=== PATIENT | male | born 1965 | race Hispanic/Latino ===

== ENCOUNTER 2017-08-24 09:43 | Emergency (ER) | payer BC ==
--- NOTE | 2017-08-24 10:18 | ER ---
Nurse's Notes [facility] Name: Hipolito Wagner Age: 52 yrs Sex: Male : 1965 Arrival Date: 08/24/2017 Time: 09:46 Bed 17 Private MD: Pancho Vora Diagnosis: Hemorrhoids and perianal venous thrombosis Presentation: 08/24 10:02 Presenting complaint: Patient states: "i have hemorrhoids and i have a rash in my groin tw2 area that comes and goes". Transition of care: patient was not received from another setting of care. Onset of symptoms was August 24, 2017. Risk Assessment: Do you want to hurt yourself or someone else? Patient reports no desire to harm self or others. Initial Sepsis Screen: Does the patient meet any 2 criteria? No. Patient's initial sepsis screen is negative. Does the patient have a suspected source of infection? No. Patient's initial sepsis screen is negative. Note "and also my finger hurts on my right hand". Care prior to arrival: None. 10:02 Method Of Arrival: Ambulatory tw2 10:02 Acuity: SANTIAGO 3 tw2 Historical: - Allergies: 10:04 No Known Allergies; tw2 - Home Meds: 10:04 None [Active]; tw2 - PMHx: 10:04 GERD; Hypertension; High Cholesterol; tw2 - Immunization history:: Adult Immunizations up to date. - Social history:: Smoking status: Patient uses tobacco products, smokes one pack cigarettes per day. Screenin:48 Abuse screen: Denies threats or abuse. Denies injuries from another. Nutritional iw screening: No deficits noted. Tuberculosis screening: No symptoms or risk factors identified. Fall Risk None identified. Vital Signs: 10:03 BP 123 / 78; Pulse 65; Resp 17; Temp 97.6(O); Pulse Ox 97% on R/A; Weight 92.08 kg (R); tw2 Height 5 ft. 2 in. (157.48 cm) (R); Pain 7/10; 10:03 Body Mass Index 37.13 (92.08 kg, 157.48 cm) tw2 ED Course: 09:46 Patient arrived in ED. mr 09:47 Pancho Vora MD is Private Physician. mr 10:03 Triage completed. tw2 10:03 Arm band placed on. tw2 10:09 Wenceslao Dowling MD is Attending Physician. gs 10:16 Quan Schroeder MD is Referral Physician. gs 10:31 Anita Smith, RN is Primary Nurse. iw 10:48 Patient has correct armband on for positive identification. Bed in low position. em 10:48 No provider procedures requiring assistance completed. Patient did not have IV access em during this emergency room visit. Administered Medications: No medications were administered Outcome: 10:17 Discharge ordered by MD. gs 10:48 Discharged to home ambulatory. iw 10:48 Condition: good 10:48 Discharge instructions given to patient, Instructed on discharge instructions, follow up and referral plans. Demonstrated understanding of instructions, follow-up care, medications, Prescriptions given X 1. 10:48 Patient left the ED. iw Signatures: Jailene Grimes Damon, Jimmy, NUCLEAR SECURITY OFFICER NUCLEAR SECURITY OFFICER em Anita Smith, RN RN iw Claudia Turcios RN RN tw2 Wenceslao Dowling MD MD
--- NOTE | 2017-08-24 10:18 | EDPHYS ---
Physician Documentation [facility] Name: Hipolito Wagner Age: 52 yrs Sex: Male : 1965 Arrival Date: 08/24/2017 Time: 09:46 Bed 17 Private MD: Pancho Vora ED Physician Wenceslao Dowling HPI: 08/24 10:14 This 52 yrs old Male presents to ER via Ambulatory with complaints of gs Hemorrhoids. 10:14 The patient presents to the emergency department with pain in the rectal area, that is gs mild. Onset: The symptoms/episode began/occurred 1 week(s) ago. Modifying factors: The symptoms are aggravated by bowel movement. Associate signs and symptoms: Pertinent negatives: lower GI bleeding. The patient has experienced similar episodes in the past, a few times. The patient has not recently seen a physician. Historical: - Allergies: 10:04 No Known Allergies; tw2 - Home Meds: 10:04 None [Active]; tw2 - PMHx: 10:04 GERD; Hypertension; High Cholesterol; tw2 - Immunization history:: Adult Immunizations up to date. - Social history:: Smoking status: Patient uses tobacco products, smokes one pack cigarettes per day. ROS: 10:14 Skin: Positive for dermatitis uses triamcinolone asking for refill. gs 10:14 All other systems are negative. Exam: 10:14 Eyes: Pupils equal round and reactive to light, extra-ocular motions intact. Lids and gs lashes normal. Conjunctiva and sclera are non-icteric and not injected. Cornea within normal limits. Periorbital areas with no swelling, redness, or edema. ENT: Nares patent. No nasal discharge, no septal abnormalities noted. Tympanic membranes are normal and external auditory canals are clear. Oropharynx with no redness, swelling, or masses, exudates, or evidence of obstruction, uvula midline. Mucous membranes moist. Neck: Trachea midline, no thyromegaly or masses palpated, and no cervical lymphadenopathy. Supple, full range of motion without nuchal rigidity, or vertebral point tenderness. No Meningismus. Cardiovascular: Regular rate and rhythm with a normal S1 and S2. No gallops, murmurs, or rubs. Normal PMI, no JVD. No pulse deficits. Respiratory: Lungs have equal breath sounds bilaterally, clear to auscultation and percussion. No rales, rhonchi or wheezes noted. No increased work of breathing, no retractions or nasal flaring. Abdomen/GI: Soft, non-tender, with normal bowel sounds. No distension or tympany. No guarding or rebound. No evidence of tenderness throughout. Back: No spinal tenderness. No costovertebral tenderness. Full range of motion. MS/ Extremity: Pulses equal, no cyanosis. Neurovascular intact. Full, normal range of motion. Neuro: Awake and alert, GCS 15, oriented to person, place, time, and situation. Cranial nerves II-XII grossly intact. Motor strength 5/5 in all extremities. Sensory grossly intact. Cerebellar exam normal. Normal gait. 10:14 Constitutional: The patient appears alert, awake. 10:14 Abdomen/GI: Rectal exam: hemorrhoid(s), external, with inflammation, without thrombosis. 10:14 Skin: rash a mild rash is noted, rash can be described as nonspecific, on the right femoral area and left femoral area. Vital Signs: 10:03 BP 123 / 78; Pulse 65; Resp 17; Temp 97.6(O); Pulse Ox 97% on R/A; Weight 92.08 kg (R); tw2 Height 5 ft. 2 in. (157.48 cm) (R); Pain 7/10; 10:03 Body Mass Index 37.13 (92.08 kg, 157.48 cm) tw2 MDM: 10:13 Patient medically screened. gs 10:14 Differential diagnosis: hemorrhoids. Data reviewed: vital signs, nurses notes. Response gs to treatment: There is no appreciated change of the patient's symptoms at this time. Administered Medications: No medications were administered Disposition: 08/24/17 10:17 Discharged to Home. Impression: Hemorrhoids and perianal venous thrombosis. - Condition is Stable. - Discharge Instructions: Hemorrhoids, [id number]. - Prescriptions for Nystatin- Triamcinolone 100,000-0.1 unit/g-% Topical Cream - apply 1 application by TOPICAL route once daily; 30 gram. - Work release form, Medication Reconciliation Form, Thank You Letter, Antibiotic Education, Prescription Opioid Use form. - Follow up: Quan Schroeder MD; When: 2 - 3 days; Reason: Re-evaluation by your physician. Signatures: Anita Smith RN RN iw Claudia Turcios RN RN tw2 Wecneslao Dowling MD MD gs Corrections: (The following items were deleted from the chart) 10:48 10:17 08/24/2017 10:17 Discharged to Home. Impression: Hemorrhoids and perianal venous iw thrombosis. Condition is Stable. Forms are Medication Reconciliation Form, Thank You Letter, Antibiotic Education, Prescription Opioid Use. Follow up: Quan Schroeder; When: 2 - 3 days; Reason: Re-evaluation by your physician. gs
[2017-08-24 10:52] VITALS: BP 123/78; TEMP 97.6; O2SAT 97
== END 2017-08-24 10:48 | disposition home or self-care (01) ==
LOC: ER 09:43
DX: K64.9 Unspecified hemorrhoids (principal); K64.5 Perianal venous thrombosis; I10 Essential (primary) hypertension; F17.210 Nicotine dependence, cigarettes, uncomplicated
CPT/HCPCS: 99282

== ENCOUNTER 2017-08-25 09:09 | Day surgery (SDC) | payer BC ==
[2017-08-25 09:36] LABS: Absolute Lymphocytes (CBC) 1.5 K/uL (0.7-4.9); Absolute Monocytes 0.5 K/uL (0.1-1.3); Absolute Neutrophil 5.1 K/uL (1.8-8.0); Basophils % 0.8 % (0-1.3); Eosinophils % 4.3 % (0-4.4); Hematocrit 48.9 % (39.6-49.0); Lymphocytes % 19.6 % (15.3-44.8); MCH 30.1 pg (27.0-35.0); MCV 87.6 fL (80-100); MPV 8.9 fL (7.6-11.3); Monocytes % 7.1 % (3.3-12.3); RBC Red Blood Cell Count 5.58 M/uL (4.33-5.43)
[2017-08-25 09:54] LABS: Bicarbonate 26 mEq/L (21-31); Glucose Level 111 mg/dL (65-120); Potassium 3.9 mEq/L (3.6-5.0); Sodium Level 135 mEq/L (135-145)
[2017-08-25 09:55] LABS: BUN Blood Urea Nitrogen 13 mg/dL (6-20)
[2017-08-25] MEDS ORDERED: Ringers Lactate 1,000 ML IV ONE (10:30)
[2017-08-25] MEDS ORDERED: BUPIVACAINE 0.5% PF 10 ML VIAL ONE (10:30)
[2017-08-25] MEDS ORDERED: CEFAZOLIN/SWI 1gm 1 GM/10 ML SYR ONE (10:30)
--- NOTE | 2017-08-25 10:47 | EKG ---
Test Date: 2017-08-25 Test Time: 09:14:01 Traffic Law Attorney: CHAR MEASUREMENT RESULTS: Intervals: Rate: 57 DE: 144 QRSD: 106 QT: 428 QTc: 416 Stanley: P: 89 DE: 144 QRS: 91 T: 99 INTERPRETIVE STATEMENTS: Sinus bradycardia Rightward axis Borderline ECG Compared to ECG 11/07/2016 08:26:09 Right-axis deviation now present Sinus rhythm no longer present Electronically Signed On 08-25-17 10:46:06 CDT by John Gomez
--- NOTE | 2017-08-25 10:55 | RAD REPORT ---
EXAM DESCRIPTION: RAD - Chest Pa And Lat (2 Views) - 08/25/2017 9:36 am CLINICAL HISTORY: Smoker, pelvic pain COMPARISON: 02/08/2017, 11/07/2016 FINDINGS: The lungs are mildly emphysematous but clear. The heart is normal in size. No displaced fr actures. IMPRESSION: Mild COPD.
[2017-08-25] MEDS ORDERED: MIDAZOLAM HCL 2 MG/2 ML INJ ONE (11:11)
[2017-08-25] MEDS ORDERED: PROPOFOL 200 MG/20 ML VIAL IV ONE (11:12)
[2017-08-25] MEDS ORDERED: FENTANYL CITR 100 MCG/2 ML ONE ×2 (11:12→11:37)
--- NOTE | 2017-08-25 11:46 | P.BOP ---
Preoperative diagnosis: tender external thrombosed hemorrhoid Postoperative diagnosis: same Primary procedure: 1. EUA, 2. Anoscopy, 3. rigid proctoscopy Secondary procedure: 4. External hemorrhoidectomy Estimated blood loss: <5cc Specimen: external thrombosed hemorrhoid Findings: left posterolateral external thrombosed hemorrhoid Anesthesia: General Complications: None Transferred to: Recovery Room Condition: Good
[2017-08-25] MEDS: MEPERIDINE HCL 25 MG/0.5 ML ONE ×2 (12:35→12:42)
[2017-08-25 13:39] VITALS: BP 120/75; O2SAT 98
[2017-08-25] MEDS ORDERED: CODEINE 30MG/APAP 300MG TAB ONE (13:58)
[2017-08-25 17:06] VITALS: TEMP 97.3
--- NOTE | 2017-08-25 22:27 | OP ---
Date of Procedure: 08/25/2017 Surgeon: Quan Schroeder MD Piano Stringer: None. Preoperative Diagnosis: Tender external thrombosed hemorrhoid. Postoperative Diagnosis: Tender external thrombosed hemorrhoid. Procedures: EUA, anoscopy, rigid proctoscopy, and external hemorrhoidectomy. Specimen: External thrombosed hemorrhoid. Findings: Left posterolateral external thrombosed hemorrhoid prolapse. Anesthesia: General, plus local. Indications: This is a case of a 52-year-old patient, comes with severe perianal pain, found to have a thrombosed hemorrhoid with necrotic tissue on the skin. The patient was fully complained the EUA, anoscopy, rigid proctoscopy with hemorrhoidectomy with benefits, alternatives, and risks including, but not limited to infection, bleeding, damage to adjacent structures, anesthesia complication, recur rence, anal stricture, anal incontinence, [place], and even . He also understands this may not relie ve any symptoms, he might need more than one surgical intervention. He understands the importance of losing weight and avoiding heavy lifting and constipation. He signed a consent. Description Of Procedure: The patient was brought to the operating room and placed in the supine pos ition. Anesthesia was done without complication. A time-out was called. The patient was placed in Trendelenburg position with proper protection. Rigid proctoscopy was done all the way to about 12 cm , limited by the amount of stool present in that area, with no masses seen. This was done under dire ct visualization. After that, the area was prepped and draped in usual sterile fashion. Anoscope wa s placed with a window on the side. Identified multiple hemorrhoids over the area. There was 1 that was thrombosed and hard, was partially necrotic and this needed to be removed. So, we created a win [place] by opening the anoderm, identifying a thrombosed hemorrhoid. that from the center. Th en after that, transected the hemorrhoidal plexus with Harmonic scalpel. The area was irrigated. He mostasis was obtained. Local anesthesia was applied and then after that, the anoderm was approximate d with 3-0 chromic. The patient tolerated the procedure well. No bleeding. Anoscope was removed. The patient was sent to recovery in stable condition. NIKOLAY/AYESHA Voice ID: [id number] Report ID: [id number]
--- NOTE | 2017-08-25 22:30 | DS ---
Date of Discharge: 08/25/2017 Diagnosis: Tender external thrombosed hemorrhoid. Procedures: EUA, anoscopy, proctoscopy, and external hemorrhoidectomy. Disposition: Home. Activity: As tolerated. No heavy lifting. Followup: Follow up in my office in 1 week. Call for appointment at [phone]. Instructions: Sitz baths 3 times a day and after every bowel movement. Medications: Include Cipro 500 p.o. q.12 and Tylenol No. 3 q.4 hours p.r.n. pain. NIKOLAY/AYESHA Voice ID: [id number] Report ID: [id number]
== END 2017-08-25 16:40 | disposition home or self-care (01) ==
LOC: OR 09:09
PROVIDERS: ATTEND Surgery
PROC: 0DJD8ZZ Inspection of Lower Intestinal Tract, Via Natural or Artificial Opening Endoscopic (ICD-10-PCS; 2017-08-25)
PROC: 06BY0ZC Excision of Hemorrhoidal Plexus, Open Approach (ICD-10-PCS; principal; 2017-08-25 12:00)
DX: K64.5 Perianal venous thrombosis (principal); F17.210 Nicotine dependence, cigarettes, uncomplicated; Z82.49 Family history of ischemic heart disease and other diseases of the circulatory system; Z83.3 Family history of diabetes mellitus; Z80.0 Family history of malignant neoplasm of digestive organs
CPT/HCPCS: 36415; 71046; 80048; 85025; 88304; 93005; J0690; J2175; J2250; J3010

== ENCOUNTER 2018-01-10 19:23 | Observation (INO) | payer BC ==
[2018-01-10 22:10] LABS: Barbiturates NEGATIVE (NEGATIVE); Benzodiazepines NEGATIVE (NEGATIVE); Cocaine NEGATIVE (NEGATIVE); METHAMPHETAM NEGATIVE (NEGATIVE); Methadone NEGATIVE (NEGATIVE); Opiates NEGATIVE (NEGATIVE); Phencyclidine NEGATIVE (NEGATIVE); THC Cannibis NEGATIVE (NEGATIVE)
[2018-01-10 22:11] LABS: Absolute Lymphocytes (CBC) 1.9 K/uL (0.7-4.9); Absolute Monocytes 0.8 K/uL (0.1-1.3); Absolute Neutrophil 8.8 K/uL (1.8-8.0); Basophils % 0.8 % (0-1.3); Eosinophils % 2.8 % (0-4.4); Hematocrit 45.2 % (39.6-49.0); Lymphocytes % 15.7 % (15.3-44.8); MCH 31.4 pg (27.0-35.0); MCV 88.1 fL (80-100); MPV 9.5 fL (7.6-11.3); Monocytes % 6.6 % (3.3-12.3); Protime INR 1.1; RBC Red Blood Cell Count 5.13 M/uL (4.33-5.43)
[2018-01-10] MEDS ORDERED: FENTANYL CITR 100 MCG/2 ML ONE (22:11)
[2018-01-10] MEDS ORDERED: ONDANSETRON 4 MG/2 ML VIAL ONE (22:12)
[2018-01-10] MEDS ORDERED: FAMOTIDINE 20 MG/2 ML VIAL IV ONE (22:12)
[2018-01-10] MEDS ORDERED: NA CHLORIDE 0.9% 1,000 ML ONE (22:13)
[2018-01-10 22:24] LABS: ALT/SGPT 31 U/L (12-78); AST/SGOT 24 U/L (15-37); Albumin 4.6 g/dL (3.4-5.0); Alkaline Phosphatase 67 U/L (45-117); BUN Blood Urea Nitrogen 23 mg/dL (7-18); Bicarbonate 27 mmol/L (21-32); Bilirubin Direct 0.1 mg/dL (0-0.2); Bilirubin Total 0.3 mg/dL (0.2-1.0); Glucose Level 98 mg/dL (74-106); Lipase 155 U/L (73-393); Magnesium 2.5 mg/dL (1.8-2.4); NT PRO-BNP 85 pg/mL (<125); Potassium 3.9 mmol/L (3.5-5.1); Protein, Total 8.2 g/dL (6.4-8.2); Sodium Level 136 mmol/L (136-145); Troponin (Emerg Dept Use Only) < 0.02 ng/mL (0.0-0.045)
[2018-01-10 23:33] LABS: Urine Specific Gravity 1.025 (1.005-1.030)
[2018-01-10 23:34] LABS: Urine Blood NEGATIVE (NEG); Urine Glucose NEGATIVE (NEG); Urine Protein 1+ (NEG); Urine pH 5.5 (5.0-7.0)
--- NOTE | 2018-01-11 00:56 | ER ---
Nurse's Notes [facility] Name: Hipolito Wagner Age: 52 yrs Sex: Male : 1965 Arrival Date: 01/10/2018 Time: 19:23 Bed 28 Private MD: Pancho Vora Diagnosis: Abdominal tenderness;Chest pain, unspecified;Unspecified kidney failure Presentation: 01/10 19:53 Presenting complaint: Patient states: he started on fluconazole for a rash on his neck bb 4 days ago and now is having pain across his back and his chest of 01/12 yesterday he had sharp abdominal pain which lasted several hours but when he woke up today it was gone. Transition of care: patient was not received from another setting of care. Onset of symptoms was January 09, 2018. Risk Assessment: Do you want to hurt yourself or someone else? Patient reports no desire to harm self or others. Initial Sepsis Screen: Does the patient meet any 2 criteria? No. Patient's initial sepsis screen is negative. Does the patient have a suspected source of infection? No. Patient's initial sepsis screen is negative. Care prior to arrival: None. 19:53 Method Of Arrival: Ambulatory bb 19:53 Acuity: SANTIAGO 3 bb Historical: - Allergies: 19:57 No Known Allergies; bb - Home Meds: 19:57 fluconazole 150 mg Oral tab 1 tab daily [Active]; bb - PMHx: 19:57 GERD; High Cholesterol; Hypertension; bb - PSHx: 19:57 Cholecystectomy; hemorrhoidectomy; bb - Immunization history:: Adult Immunizations up to date. - Social history:: Smoking status: Patient uses tobacco products, smokes one-half pack cigarettes per day, Patient/guardian denies using alcohol, street drugs. - Ebola Screening: : No symptoms or risks identified at this time. - Family history:: not pertinent. Screenin:53 Abuse screen: Denies threats or abuse. Denies injuries from another. Nutritional rv screening: No deficits noted. Tuberculosis screening: No symptoms or risk factors identified. Fall Risk None identified. Assessment: 20:53 General: Appears in no apparent distress. comfortable, Behavior is calm, cooperative. rv Pain: Complains of pain in abdomen. Neuro: Level of Consciousness is awake, alert, obeys commands, Oriented to person, place, time, situation. Cardiovascular: Capillary refill < 3 seconds. Respiratory: Airway is patent. GI: No signs and/or symptoms were reported involving the gastrointestinal system. : No signs and/or symptoms were reported regarding the genitourinary system. EENT: No signs and/or symptoms were reported regarding the EENT system. Derm: Skin is intact. 23:24 Reassessment: Patient appears in no apparent distress at this time. Patient and/or rv family updated on plan of care and expected duration. Pain level reassessed. Patient is alert, oriented x 3, equal unlabored respirations, skin warm/dry/pink. 01/11 02:34 Reassessment: Patient appears in no apparent distress at this time. Patient and/or rv family updated on plan of care and expected duration. Pain level reassessed. Patient is alert, oriented x 3, equal unlabored respirations, skin warm/dry/pink. Vital Signs: 01/10 19:57 BP 121 / 90; Pulse 82; Resp 18 S; Temp 98.3(O); Pulse Ox 98% on R/A; Weight 92.99 kg bb (R); Height 5 ft. 2 in. (157.48 cm) (R); Pain 10/10; 21:04 BP 98 / 82; Pulse 68; Resp 17; Pulse Ox 98% on R/A; rv 23:23 BP 128 / 82; Pulse 62; Resp 13; Pulse Ox 97% on R/A; rv 01/11 02:29 BP 120 / 75; Pulse 56; Resp 13; Pulse Ox 99% on R/A; rv 03:03 BP 118 / 78; Pulse 55; Pulse Ox 99% on R/A; rv 01/10 19:57 Body Mass Index 37.49 (92.99 kg, 157.48 cm) ED Course: 01/10 19:23 Patient arrived in ED. ds1 19:24 Pancho Vora MD is Private Physician. ds1 19:57 Triage completed. bb 19:57 Arm band placed on Patient placed in an exam room, on a stretcher, on pulse oximetry. bb 20:53 Patient has correct armband on for positive identification. Bed in low position. Call rv light in reach. Side rails up X 1. Pulse ox on. NIBP on. 21:14 Mickey Davila MD is Attending Physician. jordyn 21:55 Radiology exam delayed due to lab results not completed at this time. (BUN/Creatinine). [email or web address] 22:01 XRAY Chest (1 view) In Process Unspecified. EDMS 22:20 Inserted saline lock: 20 gauge in left antecubital area, using aseptic technique. Blood rv collected. 22:20 Initial lab(s) drawn, by me, sent to lab. Urine collected: clean catch specimen, clear, rv EKG done, by ED staff, reviewed by Mickey Davila MD. 22:59 Note: Per Dr. Davila to do CT without contrast due to elevated creatinine. nj 23:[address] nj 23:11 Chest Abd Pelvis Wo Con In Process Unspecified. EDMS 23:12 CT completed. Patient tolerated procedure well. Patient moved back from CT. kw1 01/11 00:54 Kylah Be MD is Hospitalizing Provider. [facility] 01:00 Awaiting bed assignment. rv 03:01 No provider procedures requiring assistance completed. Patient admitted, IV remains in rv place. intact. Administered Medications: 01/10 22:32 Drug: Zofran 4 mg Route: IVP; Site: left forearm; rv 23:22 Follow up: Response: No adverse reaction rv 22:32 Drug: Pepcid 20 mg Route: IVP; Site: left forearm; rv 23:22 Follow up: Response: No adverse reaction rv 22:33 Drug: NS 0.9% 1000 ml Route: IV; Rate: 1 bolus; Site: left forearm; rv 23:23 Follow up: IV Status: Completed infusion rv 22:33 Drug: fentaNYL (PF) 50 mcg Route: IVP; Site: left forearm; rv 23:22 Follow up: Response: No adverse reaction rv Outcome: 01/11 00:55 Decision to Hospitalize by Provider. jordyn 03:02 Admitted to Tele accompanied by tech, via wheelchair, room 411, with chart, Report rv called to BRITTANY 03:02 Condition: good 03:02 Instructed on the need for admit. 03:08 Patient left the ED. rv Signatures: Dispatcher [employer] Mickey Blackwell MD MD cha Sanford, Demi ds1 Tonya Grimes, RIDDHI RN Matt Mckinley Kimberly kw1 Chava Tran RN RN rv Jessica Stratton [email or web address] Corrections: (The following items were deleted from the chart) 02:28 02:25 Inserted saline lock: rv rv
--- NOTE | 2018-01-11 00:57 | EDPHYS ---
Physician Documentation [facility] Name: Hipolito Wagner Age: 52 yrs Sex: Male : 1965 Arrival Date: 01/10/2018 Time: 19:23 Bed 28 Private MD: Pancho Vora ED Physician Mcikey Davila HPI: 01/10 21:49 This 52 yrs old Male presents to ER via Ambulatory with complaints of Cramping jordyn All Over. 21:49 The patient presents with abdominal pain in the epigastric area, in the upper abdomen, jordyn in the right upper quadrant. Onset: The symptoms/episode began/occurred 4 day(s) ago. The patient complains of pain in the right mid back and right low back. The pain radiates to the right mid back and right low back. Onset: The symptoms/episode began/occurred 4 day(s) ago. Modifying factors: The symptoms are alleviated by nothing. Associated signs and symptoms: The patient has no apparent associated signs or symptoms. The symptoms do not radiate. Historical: - Allergies: 19:57 No Known Allergies; bb - Home Meds: 19:57 fluconazole 150 mg Oral tab 1 tab daily [Active]; bb - PMHx: 19:57 GERD; High Cholesterol; Hypertension; bb - PSHx: 19:57 Cholecystectomy; hemorrhoidectomy; bb - Immunization history:: Adult Immunizations up to date. - Social history:: Smoking status: Patient uses tobacco products, smokes one-half pack cigarettes per day, Patient/guardian denies using alcohol, street drugs. - Ebola Screening: : No symptoms or risks identified at this time. - Family history:: not pertinent. ROS: 21:49 Constitutional: Negative for fever, chills, and weight loss, Eyes: Negative for injury, jordyn pain, redness, and discharge, ENT: Negative for injury, pain, and discharge, Neck: Negative for injury, pain, and swelling, Cardiovascular: Negative for chest pain, palpitations, and edema, Respiratory: Negative for shortness of breath, cough, wheezing, and pleuritic chest pain, : Negative for injury, bleeding, discharge, and swelling, MS/Extremity: Negative for injury and deformity, Skin: Negative for injury, rash, and discoloration, Neuro: Negative for headache, weakness, numbness, tingling, and seizure, Psych: Negative for depression, anxiety, suicide ideation, homicidal ideation, and hallucinations, Allergy/Immunology: Negative for hives, rash, and allergies, Endocrine: Negative for neck swelling, polydipsia, polyuria, polyphagia, and marked weight changes, Hematologic/Lymphatic: Negative for swollen nodes, abnormal bleeding, and unusual bruising. 21:49 Abdomen/GI: Positive for abdominal pain, of the posterior aspect of right lateral abdomen, right upper quadrant and right lower quadrant. Exam: 21:49 Constitutional: This is a well developed, well nourished patient who is awake, alert, jordyn and in no acute distress. Head/Face: Normocephalic, atraumatic. Eyes: Pupils equal round and reactive to light, extra-ocular motions intact. Lids and lashes normal. Conjunctiva and sclera are non-icteric and not injected. Cornea within normal limits. Periorbital areas with no swelling, redness, or edema. ENT: Nares patent. No nasal discharge, no septal abnormalities noted. Tympanic membranes are normal and external auditory canals are clear. Oropharynx with no redness, swelling, or masses, exudates, or evidence of obstruction, uvula midline. Mucous membranes moist. Neck: Trachea midline, no thyromegaly or masses palpated, and no cervical lymphadenopathy. Supple, full range of motion without nuchal rigidity, or vertebral point tenderness. No Meningismus. Chest/axilla: Normal chest wall appearance and motion. Nontender with no deformity. No lesions are appreciated. Cardiovascular: Regular rate and rhythm with a normal S1 and S2. No gallops, murmurs, or rubs. Normal PMI, no JVD. No pulse deficits. Respiratory: Lungs have equal breath sounds bilaterally, clear to auscultation and percussion. No rales, rhonchi or wheezes noted. No increased work of breathing, no retractions or nasal flaring. Back: No spinal tenderness. No costovertebral tenderness. Full range of motion. Male : Normal genitalia with no discharge or lesions. Skin: Warm, dry with normal turgor. Normal color with no rashes, no lesions, and no evidence of cellulitis. MS/ Extremity: Pulses equal, no cyanosis. Neurovascular intact. Full, normal range of motion. Neuro: Awake and alert, GCS 15, oriented to person, place, time, and situation. Cranial nerves II-XII grossly intact. Motor strength 5/5 in all extremities. Sensory grossly intact. Cerebellar exam normal. Normal gait. Psych: Awake, alert, with orientation to person, place and time. Behavior, mood, and affect are within normal limits. 21:49 Abdomen/GI: Inspection: distension, Bowel sounds: normal, Palpation: moderate abdominal tenderness, in the posterior aspect of right lateral abdomen, right upper quadrant and right lower quadrant. Vital Signs: 19:57 BP 121 / 90; Pulse 82; Resp 18 S; Temp 98.3(O); Pulse Ox 98% on R/A; Weight 92.99 kg bb (R); Height 5 ft. 2 in. (157.48 cm) (R); Pain 01/12; 21:04 BP 98 / 82; Pulse 68; Resp 17; Pulse Ox 98% on R/A; rv 23:23 BP 128 / 82; Pulse 62; Resp 13; Pulse Ox 97% on R/A; rv 01/11 02:29 BP 120 / 75; Pulse 56; Resp 13; Pulse Ox 99% on R/A; rv 03:03 BP 118 / 78; Pulse 55; Pulse Ox 99% on R/A; rv 01/10 19:57 Body Mass Index 37.49 (92.99 kg, 157.48 cm) bb MDM: 01/10 21:14 [facility] 21:49 Data reviewed: vital signs, nurses notes, lab test result(s), EKG, radiologic studies, [facility] scan, plain films. 01/10 21:30 Order name: Basic Metabolic Panel [facility] 01/10 21:30 Order name: CBC with Diff; Complete Time: 23:07 [facility] 01/10 21:30 Order name: LFT's [facility] 01/10 21:30 Order name: Magnesium [facility] 01/10 21:30 Order name: NT PRO-BNP [facility] 01/10 21:30 Order name: PT-INR; Complete Time: 23:07 [facility] 01/10 21:30 Order name: Troponin (emerg Dept Use Only) [facility] 01/10 21:30 Order name: Lipase [facility] 01/10 21:30 Order name: UDS; Complete Time: 23:07 [facility] 01/10 21:30 Order name: Urine Culture [facility] 01/10 21:30 Order name: ETOH Level; Complete Time: 23:07 [facility] 01/10 21:31 Order name: Basic Metabolic Panel EDIA 01/10 21:31 Order name: Liver (Hepatic) Function EDMS 01/10 22:59 Order name: Urine Dipstick--Ancillary (enter results); Complete Time: 00:53 id 01/10 21:30 Order name: XRAY Chest (1 view) [facility] 01/10 21:30 Order name: EKG; Complete Time: 21:31 [facility] 01/10 21:30 Order name: Cardiac monitoring; Complete Time: 22:33 [facility] 01/10 21:30 Order name: EKG - Nurse/Tech; Complete Time: 23:23 [facility] 01/10 21:30 Order name: IV Saline Lock; Complete Time: 22:33 [facility] 01/10 21:30 Order name: Labs collected and sent; Complete Time: 22:33 [facility] 01/10 21:30 Order name: O2 Per Protocol; Complete Time: 22:33 [facility] 01/10 22:55 Order name: Chest Abd Pelvis Wo Con EDIA 01/11 01:00 Order name: CONS Physician Consult EDIA 01/11 01:05 Order name: Uric Acid EDIA 01/10 21:30 Order name: O2 Sat Monitoring; Complete Time: 22:33 [facility] 01/10 21:30 Order name: Urine Dipstick-Ancillary (obtain specimen); Complete Time: 23:23 [facility] Administered Medications: 22:32 Drug: Zofran 4 mg Route: IVP; Site: left forearm; rv 23:22 Follow up: Response: No adverse reaction rv 22:32 Drug: Pepcid 20 mg Route: IVP; Site: left forearm; rv 23:22 Follow up: Response: No adverse reaction rv 22:33 Drug: NS 0.9% 1000 ml Route: IV; Rate: 1 bolus; Site: left forearm; rv 23:23 Follow up: IV Status: Completed infusion rv 22:33 Drug: fentaNYL (PF) 50 mcg Route: IVP; Site: left forearm; rv 23:22 Follow up: Response: No adverse reaction rv Disposition: 01/11/18 00:55 Hospitalization ordered by Kylah Be for Observation. Preliminary diagnosis are Abdominal tenderness, Chest pain, unspecified, Unspecified kidney failure. - Bed requested for Telemetry/MedSurg (observation). - Status is Observation. rv - Condition is Fair. - Problem is new. - Symptoms have improved. UTI on Admission? No Signatures: Dispatcher [employer] EDIA Glory Haji, RIDDHI RN Mickey Ramirez MD MD cha Ballard, Brenda, RN RN Chava Armando, RIDDHI RN rv Corrections: (The following items were deleted from the chart) 22:55 21:31 Angio Aorta For Dissection+CT.RAD.BRZ ordered. EDIA EDIA 01/11 01:05 01:01 URIC ACID+C.LAB.BRZ ordered. [facility] EDIA 02:44 00:55 Hospitalization Ordered by Kylah Be MD for Observation. Preliminary kl diagnosis is Abdominal tenderness; Chest pain, unspecified; Unspecified kidney failure. Bed requested for Telemetry/MedSurg (observation). Status is Observation. Condition is Fair. Problem is new. Symptoms have improved. UTI on Admission? No. [facility] 03:08 02:44 01/11/2018 00:55 Hospitalization Ordered by Kylah Be MD for Observation. rv Preliminary diagnosis is Abdominal tenderness; Chest pain, unspecified; Unspecified kidney failure. Bed requested for Telemetry/MedSurg (observation). Status is Observation. Condition is Fair. Problem is new. Symptoms have improved. UTI on Admission? No. kl
[2018-01-11 01:54] LABS: Uric Acid 7.8 mg/dL (3.5-7.2)
[2018-01-11] MEDS ORDERED: ALPRAZOLAM 0.25 MG TABLET PO PRN (02:50)
[2018-01-11] MEDS ORDERED: MORPHINE 4 MG/ML SYR IV PRN (02:50)
[2018-01-11 05:17] VITALS: BMI 34.5
[2018-01-11 06:34] LABS: HDL Cholesterol 32 mg/dL (40-60); LDL Cholesterol, Calculated 73 (<130); Troponin I < 0.02 ng/mL (0.0-0.045)
--- NOTE | 2018-01-11 07:06 | RAD REPORT ---
EXAM DESCRIPTION: CT - Chest Abd Pelvis Wo Con - 01/11/2018 6:26 am CLINICAL HISTORY: Chest pain, back pain, abdominal pain COMPARISON: None. TECHNIQUE: Axial 5 millimeter thick images of the chest abdomen and pelvis were obtained. No oral co ntrast administered. All CT scans are performed using dose optimization technique as appropriate and may include automated exposure control or mA/KV adjustment according to patient size. FINDINGS: The lungs are clear of mass and infiltrate. No pneumothorax or pleural effusion. No ches t wall mass or abnormal axillary lymphadenopathy seen. Mediastinal and hilar regions show no mass or lymphadenopathy. No significant cardiac finding. The liver, spleen and pancreas show no significant findings. Cholecystectomy clips are present. No b iliary tree dilatation. No hydronephrosis and no obstructing or nonobstructing calculi. No mass suspected. Isodense masses an d pyelonephritis are not excluded on a noncontrast study. No adrenal abnormalities. No urinary bladd er abnormalities. No dilated bowel loops or focal ball bowel wall thickening. No free air, free fluid or inflammatory stranding. No mass or bulky lymphadenopathy. Small bilateral fat filled inguinal hernias are present . Patient has a 3 centimeter fat only umbilical hernia. No significant bone or vascular finding. IMPRESSION: CT chest imaging shows no mass, lymphadenopathy or other significant finding. CT abdomen and pelvis imaging shows no significant or suspicious finding.Nonacute findings detailed i n the body of the report.
--- NOTE | 2018-01-11 07:10 | RAD REPORT ---
EXAM DESCRIPTION: RAD - Chest Single View - 01/10/2018 10:01 pm CLINICAL HISTORY: Chest pain, back pain COMPARISON: August 2017 TECHNIQUE: AP portable chest image was obtained 2155 hours . FINDINGS: Lungs are clear. Heart and vasculature are normal. No measurable pleural effusion and no p neumothorax. No acute bony abnormality seen. No acute aortic findings suspected. IMPRESSION: No acute cardiopulmonary process. No significant change from comparison.
--- NOTE | 2018-01-11 07:34 | EKG ---
Test Date: 2018-01-10 Test Time: 22:46:13 Chief Orthoptist: MEASUREMENT RESULTS: Intervals: Rate: 60 MA: 170 QRSD: 104 QT: 440 QTc: 440 [place]: P: 71 MA: 170 QRS: 86 T: 75 INTERPRETIVE STATEMENTS: Normal sinus rhythm Normal ECG Compared to ECG 08/25/2017 09:14:01 Sinus bradycardia no longer present Right-axis deviation no longer present Electronically Signed On 01-11-18 07:33:18 CDT by John Gomez
[2018-01-11] MEDS ORDERED: DEXAMETHASONE 4 MG/ML VIAL IV ONE (07:41)
--- NOTE | 2018-01-11 07:51 | P.HP ---
Certification for Inpatient Patient admitted to: Observation With expected LOS: <2 Midnights Patient will require the following post-hospital care: None Practitioner: I am a practitioner with admitting privileges, knowledge of patient current condition, hospital course, and medical plan of care. Services: Services provided to patient in accordance with Admission requirements found in Title 42 Section 412.3 of the Code of Federal Regulations Patient History Date of Service: 01/11/18 Reason for admission: Abdominal pain; chest pain; acute kidney injury History of Present Illness: Patient is a 52-year-old gentleman who came into the hospital with chest discomfort. Patient also had discomfort in the upper back. Patient had been to see his primary care provider and was prescribed an antifungal. Patient had been using this for the last few days, but then developed significant pain in her upper back. Patient's pain tends to be debilitating. Patient is not able to do much with the pain starts. Decision was made to admit the patient to the hospital for further evaluation. Allergies No Known Allergies Allergy (Verified 08/25/17 10:24) Home Medications: Clotrim/Betameth Cream [Lotrisone Cream*] 1 katina TOP BID 01/11/18 Fluconazole 100 mg PO DAILY 01/11/18 - Past Medical/Surgical History Has patient received pneumonia vaccine in the past: No Diabetic: No -: GERD -: HTN -: High Cholesterol -: Cholecystectomy -: Hemorrhoidectomy - Family History Brother Medical History: Cancer Notes: Brain cancer mom Medical History: Diabetes, Cancer dad Medical History: Diabetes, Cancer Notes: Pancreatic cancer - Social History Smoking Status: Current every day smoker Alcohol use: No CD- Drugs: No Caffeine use: Yes Place of Residence: Home Review of Systems 10-point ROS is otherwise unremarkable General: Fever Respiratory: Cough, Dry, Shortness of Breath, Hemoptysis Cardiovascular: Chest Pain, Palpitations Physical Examination - Vital Signs Temperature: 97.2 F Blood Pressure: 110/61 Pulse: 50 Respirations: 16 Pulse Ox (%): 97 - Physical Exam General: Alert, In no apparent distress, Oriented x3 HEENT: Atraumatic, Normocephalic, PERRLA, Mucous membr. moist/pink Neck: Supple, 2+ carotid pulse no bruit, JVD not distended, No Thyromegaly, No LAD Respiratory: Clear to auscultation bilaterally, Normal air movement Cardiovascular: Regular rate/rhythm, Normal S1 S2 Gastrointestinal: Normal bowel sounds, Hypoactive, Soft and benign, Non- distended Musculoskeletal: No clubbing, No swelling, No contractures, No warmth Integumentary: No rashes, No breakdown, No significant lesion, No tenderness/ swelling Neurological: Normal gait, Normal speech, Normal strength at 5/5 x4 extr, Normal tone - Studies Laboratory Data (last 24 hrs) 01/10/18 21:50: PT 13.0 H, INR 1.10 01/10/18 21:50: WBC 11.9 H, Hgb 16.1, Hct 45.2, Plt Count 164 01/10/18 21:50: Sodium 136, Potassium 3.9, BUN 23 H, Creatinine 2.00 H, Glucose 98, Uric Acid 7.8 H, Magnesium 2.5 H, Total Bilirubin 0.3, AST 24, ALT 31, Alkaline Phosphatase 67, Lipase 155 Assessment & Plan - Problems (Diagnosis) (1) Negative middle ear pressure Current Visit: Yes Status: Acute (2) Cutaneous candidiasis Current Visit: Yes Status: Acute (3) Antifungal drug adverse reaction Current Visit: Yes Status: Acute (4) Upper back pain Current Visit: Yes Status: Acute (5) Acute kidney injury superimposed on CKD Current Visit: Yes Status: Acute - Plan Plan: 1. Serial troponins and EKG 2. Anti-inflammatory for back pain 3. Echocardiogram 4. Anti-platelet therapy, 5. Discontinue antifungal 6. Gentle hydration and check a renal ultrasound/urine analysis 7. GI and DVT prophylaxis Discharge Plan: Home Plan to discharge in: 24 Hours - Advance Directives Does patient have a Living Will: No Does patient have a Durable POA for Healthcare: No - Code Status/Comfort Care Code Status Assessed: Yes Code Status: Full Code Critical Care: No Time Spent Managing PTS Care (In Minutes): 50
[2018-01-11] MEDS ORDERED: INFLUENZA VACCINE (for 3y+) 0.5 ML DOSE IMVAC ONE (08:00)
[2018-01-11] MEDS: METOPROLOL TAR 50 MG TAB PO SCH ×2 (09:00→20:38)
[2018-01-11] MEDS ORDERED: NA CHLORIDE 0.9% 1,000 ML IV ONE (09:45)
--- NOTE | 2018-01-11 10:31 | RAD REPORT ---
EXAM DESCRIPTION: US - Renal Ultrasound-Complete - 01/11/2018 9:08 am CLINICAL HISTORY: . Acute renal insufficiency/chronic renal insufficiency COMPARISON: None. FINDINGS: The right kidney measures 11 cm with a mildly increased echotexture. The left kidney measures 11 cm with a mildly increased echotexture. Hydronephrosis is not seen. No gross abnormality of the bladder is noted IMPRESSION: Mildly increased renal echotexture consistent with parenchymal disease
[2018-01-11] MEDS: ENOXAPARIN 40 MG/0.4 ML SQ SCH (10:40)
[2018-01-11] MEDS: ASPIRIN EC 81 MG TAB PO SCH (10:41)
[2018-01-11 11:37] LABS: Absolute Lymphocytes (CBC) 1.5 K/uL (0.7-4.9); Absolute Monocytes 0.6 K/uL (0.1-1.3); Absolute Neutrophil 3.7 K/uL (1.8-8.0); Eosinophils % 7.1 % (0-4.4); Hematocrit 41.9 % (39.6-49.0); MCH 31.2 pg (27.0-35.0); MCV 89.8 fL (80-100); MPV 9.1 fL (7.6-11.3); Monocytes % 9.7 % (3.3-12.3); RBC Red Blood Cell Count 4.67 M/uL (4.33-5.43)
[2018-01-11 11:51] LABS: Magnesium 2.2 mg/dL (1.8-2.4); Phosphorus 2.4 mg/dL (2.5-4.9)
[2018-01-11] MEDS: NA CHLORIDE 0.9% 1,000 ML IV SCH ×3 (11:51→23:42)
--- NOTE | 2018-01-11 12:11 | EKG ---
Test Date: 2018-01-11 Test Time: 08:29:08 Erp Specialist: YANIRA MEASUREMENT RESULTS: Intervals: Rate: 48 TN: 182 QRSD: 112 QT: 448 QTc: 400 [place]: P: 78 TN: 182 QRS: 84 T: 90 INTERPRETIVE STATEMENTS: Marked sinus bradycardia Abnormal ECG Compared to ECG 01/10/2018 22:46:13 Sinus rhythm no longer present Electronically Signed On 01-11-18 12:10:45 CDT by John Gomez
--- NOTE | 2018-01-11 12:45 | ECHO ---
HEIGHT: 5 ft 2 in WEIGHT: 188 lb 12.8 oz DATE OF STUDY: 01/11/[address]: 2-DIMENSIONAL: YES M.MODE: YES DOPPLER: YES COLOR FLOW: YES TDS: YES PORTABLE: NO DEFINITY: NO BUBBLE STUDY: NO DIAGNOSIS: CHEST PAIN, RULE OUT ACUTE CORONARY SYNDROME CARDIAC HISTORY: CATHERIZATION: NO SURGERY: NO PROSTHETIC VALVE: NO PACEMAKER: NO MEASUREMENTS (cm) DIASTOLIC (NORMALS) SYSTOLIC (NORMALS) IVSd 1.1 (0.6-1.2) LA Diam 3.6 (1.9-4.0) LVEF 55% LVIDd 5.4 (3.5-5.7) LVIDs 3.8 (2.0-3.5) %FS 29% LVPWd 1.1 (0.6-1.2) Ao Diam 2.4 (2.0-3.7) 2 DIMENSIONAL ASSESSMENT: RIGHT ATRIUM: NORMAL LEFT ATRIUM: NORMAL RIGHT VENTRICLE: NORMAL LEFT VENTRICLE: NORMAL TRICUSPID VALVE: NORMAL MITRAL VALVE: NORMAL PULMONIC VALVE: NORMAL AORTIC VALVE: NORMAL PERICARDIAL EFFUSION: NONE AORTIC ROOT: NORMAL LEFT VENTRICULAR WALL MOTION: NORMAL. DOPPLER/COLOR FLOW: NORMAL. COMMENTS: NORMAL 2D ECHOCARDIOGRAM WITH DOPPLER. TECHNICALLY DIFFICULT STUDY. TECHNOLOGIST: SALO GOOD RDCS
--- NOTE | 2018-01-11 18:00 | CON ---
Date of Consultation: 01/11/2018 Additional Consulting Physician: Dr. Be. Reason For Consultation: Elevated BUN and creatinine, fluid management. History Of Present Illness: This is a 52-year-old gentleman with significant past medical history of hypertension, GERD. The patient came to the hospital with chest discomfort, cough, nausea without a ny vomiting for the last few days. No fever or chills. The patient denied taking any nonsteroidal. No IV contrast. Primary workup show creatinine in the 2. For that reason, we consulted. As I ment ioned, the patient had no IV contrast, no nonsteroidal. The patient denies recent exposure to any an tibiotic except fluconazole 4 skin rash suspect of fungus. The patient was started on IV hydration. No fever or chills. Past Medical History: Include, 1.Hypertension. 2.Hyperlipidemia. 3.GERD. Allergies: NO KNOWN DRUG ALLERGIES. Home Medications: Include and fluconazole. Past Surgical History: Negative. Family History: Positive for cancer and hypertension. Social History: Active smoker. Occasional alcohol. Denies drug abuse. Review of Systems: Head and Neck: No red eye. No ear pain. GI: Has nausea. No vomiting. : No polyuria. No dysuria. No hematuria. CERTIFIED REGISTERED NURSE PRACTITIONER: Not applicable. Respiratory: Has chest tightness. Has cough. Cardiovascular: Has chest tightness. Endocrine: No polydipsia. Skin: No rash. Neuro: No neuropathy. Musculoskeletal: No joint pain. Physical Examination: General: When I saw the patient, the patient lying in bed, comfortable, not on any distress. Vital Signs: Blood pressure 110/59, pulse of 54, afebrile. Reviewing the record, the patient on pre sentation has low blood pressure down to the 90. Chest: Clear to auscultation. Heart: S1, S2. Regular. Abdomen: Soft. Nontender. Extremities: No edema. Laboratory Data: WBC 6.3, H and H 14.6/41.9, platelet 144. On admission, H and H 16.1/45. Sodium 1 36, potassium 3.9, bicarb 37, BUN 23, creatinine of 2, GFR down to 35, calcium 9.2. Uric acid 7.8. Urinalysis +1 protein. Renal ultrasound, 11 x 11, decreased echogenicity. Assessment And Plan: 1.Acute kidney injury, normal-sized kidney, proteinuric, nonnephrotic, mostly secondary to prerenal. I am going to bolus the patient with normal saline, then I am going to place him on 100 per hour. We will follow up renal ultrasound, and protein creatinine. 2.Kidney function, improved. Hopefully patient will be able to be discharged tomorrow. I am going to go ahead and send for CK and to quantify the urine. We will send for protein creatinine also give n the skin rash. 3.Hypertension. Currently blood pressure on the lower side. I am going to keep holding all blood pressure medication. 4.Pneumonia, as by primary. NAVID/AYESHA Voice ID: [id number] Report ID: [id number]
[2018-01-11] MEDS: ACETAMINOPHEN 500 MG TAB PO PRN (20:59)
[2018-01-12] MEDS: NA CHLORIDE 0.9% 1,000 ML IV SCH (06:35)
[2018-01-12 06:39] LABS: Absolute Lymphocytes (CBC) 1.2 K/uL (0.7-4.9); Absolute Monocytes 0.7 K/uL (0.1-1.3); Absolute Neutrophil 6.7 K/uL (1.8-8.0); Basophils % 0.3 % (0-1.3); Eosinophils % 0.5 % (0-4.4); Hematocrit 40.1 % (39.6-49.0); Lymphocytes % 14.4 % (15.3-44.8); MCH 32.2 pg (27.0-35.0); MCV 89.4 fL (80-100); MPV 9.8 fL (7.6-11.3); Monocytes % 7.6 % (3.3-12.3); RBC Red Blood Cell Count 4.49 M/uL (4.33-5.43)
[2018-01-12 06:50] LABS: UR PROTEIN < 5 mg/dL (<11.9); Urine Protein/Creatinine Ratio ND ratio (<0.15)
[2018-01-12 06:57] LABS: Albumin 3.6 g/dL (3.4-5.0); Phosphorus 2.4 mg/dL (2.5-4.9); Potassium 3.9 mmol/L (3.5-5.1); Thyroid Stimulating Hormone 0.98 uIU/mL (0.360-3.740)
[2018-01-12] MEDS: METOPROLOL TAR 50 MG TAB PO SCH (09:00)
[2018-01-12] MEDS: ENOXAPARIN 40 MG/0.4 ML SQ SCH (09:31)
[2018-01-12] MEDS: ACETAMINOPHEN 500 MG TAB PO PRN (09:31)
[2018-01-12] MEDS: ASPIRIN EC 81 MG TAB PO SCH (09:32)
[2018-01-12 11:38] VITALS: O2SAT 99
--- NOTE | 2018-01-12 13:13 | P.DS ---
Admission Date: 01/11/18 Discharge Date: 01/12/18 Primary Care Provider: Dr. Vora Disposition: ROUTINE DISCHARGE Discharge Condition: GOOD Reason for Admission: Abdominal pain; chest pain; acute kidney injury Consultations: Dr. Lara, nephrology Brief History of Present Illness: Patient is a 52-year-old gentleman who came into the hospital with chest and upper discomfort. Patient had been to see his primary care provider and was prescribed an antifungal. Patient had been using this for the last few days, but then developed significant pain in her upper back. Patient's pain tends to be debilitating. Patient is not able to do much with the pain starts. Decision was made to admit the patient to the hospital for further evaluation and to rule out ACS. Hospital Course: Patient was admitted to the hospital and put on tele. Serial troponins and EKGs were done, which were all normal. An echo was done, which was also normal. End cardiac workup was negative and patient was provided pain control. Patient also presented with AKA try on admission, Nephrology was consulted and patient was started on gentle hydration and a renal ultrasound was done along with a urinalysis. Patient's DKA resolved with gentle hydration. Patient was educated on oral hydration and avoiding nephrotoxic drugs. Vital Signs/Physical Exam: Temp Pulse Resp BP Pulse Ox 97.8 F 54 18 121/66 99 01/12/18 08:00 01/12/18 09:00 01/12/18 08:00 01/12/18 09:00 01/12/18 08:00 General: Alert, In no apparent distress, Oriented x3 HEENT: Atraumatic Neck: Supple, JVD not distended Respiratory: Clear to auscultation bilaterally, Normal air movement Cardiovascular: No edema, Normal pulses, Regular rate/rhythm, Normal S1 S2 Gastrointestinal: Normal bowel sounds, Soft and benign Musculoskeletal: No clubbing, No swelling Neurological: Normal gait Laboratory Data at Discharge: WBC 8.7 K/uL (4.3-10.9) D 01/12/18 05:30 Hgb 14.4 g/dL (13.6-17.9) 01/12/18 05:30 Hct 40.1 % (39.6-49.0) 01/12/18 05:30 Plt Count 134 K/uL (152-406) L 01/12/18 05:30 PT 13.0 SECONDS (9.5-12.5) H 01/10/18 21:50 INR 1.10 01/10/18 21:50 Sodium 141 mmol/L (136-145) 01/12/18 05:30 Potassium 3.9 mmol/L (3.5-5.1) 01/12/18 05:30 BUN 15 mg/dL (7-18) 01/12/18 05:30 Creatinine 1.00 mg/dL (0.55-1.3) 01/12/18 05:30 Glucose 108 mg/dL (74-106) H 01/12/18 05:30 Uric Acid Cancelled 01/11/18 01:00 Phosphorus 2.4 mg/dL (2.5-4.9) L 01/12/18 05:30 Magnesium 2.2 mg/dL (1.8-2.4) 01/11/18 11:20 Total Bilirubin 0.3 mg/dL (0.2-1.0) 01/10/18 21:50 AST 24 U/L (15-37) 01/10/18 21:50 ALT 31 U/L (12-78) 01/10/18 21:50 Alkaline Phosphatase 67 U/L (45-117) 01/10/18 21:50 Troponin I < 0.02 ng/mL (0.0-0.045) 01/11/18 13:55 Triglycerides 164 mg/dL (<150) H 01/11/18 05:30 Cholesterol 138 mg/dL (<200) 01/11/18 05:30 HDL Cholesterol 32 mg/dL (40-60) L 01/11/18 05:30 Cholesterol/HDL Ratio 4.31 01/11/18 05:30 Lipase 155 U/L (73-393) 01/10/18 21:50 Home Medications: Clotrim/Betameth Cream [Lotrisone Cream*] 1 katina TOP BID 01/11/18 Patient Discharge Instructions: Please follow up with the primary care in the next 1 week Diet: AHA Activity: Ad melia Followup: Jenni Lara MD [ACTIVE - CAN ADMIT] - Pancho Vora MD [Primary Care Provider] - Time spent managing pt's care (in minutes): 40
[2018-01-12 16:33] VITALS: BP 101/55; TEMP 98
--- NOTE | 2018-01-13 04:28 | PN ---
Subjective: The patient was admitted with acute kidney injury secondary to dehydration. After hydrat ion, kidney function has been improved. The patient is asymptomatic. Physical Examination: Vital Signs: Blood pressure of 101/55, pulse of 67. Chest: Clear to auscultation. Heart: S1, S2. Regular. Abdomen: Soft, nontender. Extremities: No edema. Laboratory Data: H and H 14.4/40.1, WBC 8.7. Sodium 141, potassium 3.9, bicarb 25, BUN 15 creatinin e 1, calcium 7.8, phosphorus 2.4. Current Medications: Include: 1.IV fluid. 2. . 3.Aspirin. 4.Metoprolol. Assessment And Plan: 1.Acute kidney injury secondary to prerenal, resolved. 2.Hypertension, controlled, optimal. 3.Hypokalemia, resolved. The patient cleared from the renal standpoint for discharge planning. JEFF Voice ID: [id number] Report ID: [id number]
== END 2018-01-12 16:32 | disposition home or self-care (01) ==
LOC: ER 19:23 → ERHOLD 01-11 00:57 → 4TH 01-11 03:04
PROVIDERS: ADMIT Hospitalist; ATTEND Hospitalist
DX: R07.9 Chest pain, unspecified (principal); N17.9 Acute kidney failure, unspecified; E86.0 Dehydration; E87.6 Hypokalemia; I10 Essential (primary) hypertension; E78.5 Hyperlipidemia, unspecified; K21.9 Gastro-esophageal reflux disease without esophagitis; F17.210 Nicotine dependence, cigarettes, uncomplicated; Z23 Encounter for immunization
CPT/HCPCS: 36415; 71045; 71250; 74176; 76770; 80048; 80061; 80069; 80076; 80307; 80320; 81003; 82570; 83690; 83735; 83880; 84100; 84156; 84443; 84484; 84550; 85025; 85610; 87086; 87088; 93005; 93306; 96361; 96374; 96375; 99285; G0008; G0378; J1650; J2405; J3010; J7030; Q2035

== ENCOUNTER 2018-03-08 13:04 | Emergency (ER) | payer BC ==
--- NOTE | 2018-03-08 15:01 | RAD REPORT ---
EXAM DESCRIPTION: USExtremity Venous Uni Ltd03/08/2018 2:46 pm CLINICAL HISTORY: left leg pain COMPARISON: None. FINDINGS: Left common femoral, superficial femoral, popliteal and posterior tibial veins are compre ssible and demonstrate augmentation. Doppler demonstrates good flow. IMPRESSION: No evidence of deep venous thrombosis involving the left lower extremity.
--- NOTE | 2018-03-08 15:05 | EDPHYS ---
Physician Documentation [facility] Name: Hipolito Wagner Age: 52 yrs Sex: Male : 1965 Arrival Date: 03/08/2018 Time: 13:08 Bed 12 Private MD: Pancho Vora ED Physician Wenceslao Dowling HPI: 03/08 14:56 This 52 yrs old Male presents to ER via Ambulatory with complaints of Leg Pain.gs 14:56 The patient presents with pain. The complaints affect the left calf, medial aspect of gs left thigh and medial aspect of left knee. Onset: The symptoms/episode began/occurred yesterday, after driving a few hours. Modifying factors: the symptoms are aggravated by movement. Associated signs and symptoms: Pertinent negatives numbness, weakness. Severity of symptoms: At their worst the symptoms were moderate, in the emergency department the symptoms are unchanged. The patient has not experienced similar symptoms in the past. Historical: - Allergies: 13:22 No Known Allergies; iw - Home Meds: 13:22 None [Active]; iw - PMHx: 13:22 GERD; High Cholesterol; Hypertension; iw - PSHx: 13:22 Cholecystectomy; hemorrhoidectomy; iw - Immunization history:: Adult Immunizations unknown. - Social history:: The patient lives at home, Smoking status: unknown. - Ebola Screening: : Patient negative for fever greater than or equal to 101.5 degrees Fahrenheit, and additional compatible Ebola Virus Disease symptoms Patient denies exposure to infectious person Patient denies travel to an Ebola-affected area in the 21 days before illness onset No symptoms or risks identified at this time. ROS: 14:56 All other systems are negative. gs Exam: 14:56 Chest/axilla: Normal chest wall appearance and motion. Nontender with no deformity. gs No lesions are appreciated. Cardiovascular: Regular rate and rhythm with a normal S1 and S2. No gallops, murmurs, or rubs. Normal PMI, no JVD. No pulse deficits. Respiratory: Lungs have equal breath sounds bilaterally, clear to auscultation and percussion. No rales, rhonchi or wheezes noted. No increased work of breathing, no retractions or nasal flaring. Abdomen/GI: Soft, non-tender, with normal bowel sounds. No distension or tympany. No guarding or rebound. No evidence of tenderness throughout. Back: No spinal tenderness. No costovertebral tenderness. Full range of motion. Skin: Warm, dry with normal turgor. Normal color with no rashes, no lesions, and no evidence of cellulitis. Neuro: Awake and alert, GCS 15, oriented to person, place, time, and situation. Cranial nerves II-XII grossly intact. Motor strength 5/5 in all extremities. Sensory grossly intact. Cerebellar exam normal. Normal gait. 14:56 Constitutional: The patient appears alert, awake. 14:56 Musculoskeletal/extremity: Circulation is intact in all extremities. DVT Exam: no swelling, no appreciated bluish discoloration, no erythema, no increased warmth, pain, tenderness, positive Homans' sign noted on exam. Vital Signs: 13:22 BP 122 / 76; Pulse 69; Resp 16; Temp 97.4(TE); Pulse Ox 98% on R/A; Weight 84.82 kg; iw Height 5 ft. 2 in. (157.48 cm); Pain 9/10; 15:25 BP 118 / 74; Pulse 72; Resp 16; Pulse Ox 98% on R/A; rv 13:22 Body Mass Index 34.20 (84.82 kg, 157.48 cm) iw MDM: 14:18 Patient medically screened. 14:56 Differential diagnosis: tendonitis, sprain,dvt. Data reviewed: vital signs, nurses gs notes. Response to treatment: the patient's symptoms have mildly improved after treatment, and as a result, I will discharge patient. 03/08 14:23 Order name: Extremity Venous Unilateral Ltd; Complete Time: 15:04 Administered Medications: No medications were administered Disposition: 03/08/18 15:05 Discharged to Home. Impression: Pain in left leg. - Condition is Stable. - Discharge Instructions: Musculoskeletal Pain. - Prescriptions for Tramadol 50 mg Oral Tablet - take 1 tablet by ORAL route every 8 hours as needed; 10 tablet. - Medication Reconciliation Form, Thank You Letter, Antibiotic Education, Prescription Opioid Use form. - Follow up: Bhaskar Murrieta MD; When: 2 - 3 days; Reason: Re-evaluation by your physician. Signatures: Dispatcher [employer] Anita Alanis RN RN Wenceslao Dowling MD MD Marc, Chava, RN RN rv Corrections: (The following items were deleted from the chart) 15:27 15:05 03/08/2018 15:05 Discharged to Home. Impression: Pain in left leg. Condition is rv Stable. Forms are Medication Reconciliation Form, Thank You Letter, Antibiotic Education, Prescription Opioid Use. Follow up: Bhaskar Murrieta; When: 2 - 3 days; Reason: Re-evaluation by your physician. gs
--- NOTE | 2018-03-08 15:05 | ER ---
Nurse's Notes [facility] Name: Hipolito Wagner Age: 52 yrs Sex: Male : 1965 Arrival Date: 03/08/2018 Time: 13:08 Bed 12 Private MD: Pancho Vora Diagnosis: Pain in left leg Presentation: 03/08 13:20 Presenting complaint: Patient states: left knee pain radiating to calf since Wednesday, iw denies injury, denies hx of DVT, denies redness or swelling, pain worsens when he moves his knee a certain. Transition of care: patient was not received from another setting of care. Onset of symptoms was March 05, 2018. Risk Assessment: Do you want to hurt yourself or someone else? Patient reports no desire to harm self or others. Initial Sepsis Screen: Does the patient meet any 2 criteria? No. Patient's initial sepsis screen is negative. Does the patient have a suspected source of infection? No. Patient's initial sepsis screen is negative. Care prior to arrival: None. 13:20 Method Of Arrival: Ambulatory iw 13:20 Acuity: SANTIAGO 4 iw Historical: - Allergies: 13:22 No Known Allergies; iw - Home Meds: 13:22 None [Active]; iw - PMHx: 13:22 GERD; High Cholesterol; Hypertension; iw - PSHx: 13:22 Cholecystectomy; hemorrhoidectomy; iw - Immunization history:: Adult Immunizations unknown. - Social history:: The patient lives at home, Smoking status: unknown. - Ebola Screening: : Patient negative for fever greater than or equal to 101.5 degrees Fahrenheit, and additional compatible Ebola Virus Disease symptoms Patient denies exposure to infectious person Patient denies travel to an Ebola-affected area in the 21 days before illness onset No symptoms or risks identified at this time. Screenin:55 Abuse screen: Denies threats or abuse. Denies injuries from another. Nutritional iw screening: No deficits noted. Tuberculosis screening: No symptoms or risk factors identified. Fall Risk None identified. Assessment: 13:55 General: Appears in no apparent distress. Behavior is calm, cooperative. Pain: iw Complains of pain in medial aspect of left knee Pain radiates to left calf. Neuro: Level of Consciousness is awake, alert, obeys commands, Oriented to person, place, time, situation, Moves all extremities. Full function. Cardiovascular: Patient's skin is warm and dry. Respiratory: Respiratory effort is even, unlabored, Respiratory pattern is regular. Derm: Skin is intact, is healthy with good turgor. Musculoskeletal: Range of motion: intact in all extremities. Vital Signs: 13:22 BP 122 / 76; Pulse 69; Resp 16; Temp 97.4(TE); Pulse Ox 98% on R/A; Weight 84.82 kg; iw Height 5 ft. 2 in. (157.48 cm); Pain 9/10; 15:25 BP 118 / 74; Pulse 72; Resp 16; Pulse Ox 98% on R/A; rv 13:22 Body Mass Index 34.20 (84.82 kg, 157.48 cm) iw ED Course: 13:08 Patient arrived in ED. mr 13:08 Pancho Vora MD is Private Physician. mr 13:21 Triage completed. iw 13:22 Arm band placed on. iw 13:23 Anita Smith RN is Primary Nurse. iw 13:30 Wenceslao Dowling MD is Attending Physician. gs 14:46 US Extremity Venous Unilateral Ltd In Process Unspecified. EDMS 14:52 Ultrasound completed. Patient tolerated well. aa4 14:52 Patient moved back from ultrasound. aa4 15:00 Patient has correct armband on for positive identification. Call light in reach. rv 15:00 NIBP on. rv 15:04 Bhaskar Murrieta MD is Referral Physician. gs 15:26 No provider procedures requiring assistance completed. Patient did not have IV access rv during this emergency room visit. Administered Medications: No medications were administered Outcome: 15:05 Discharge ordered by . gs 15:27 Discharged to home ambulatory. rv 15:27 Condition: good 15:27 Discharge instructions given to patient, Instructed on discharge instructions, follow up and referral plans. medication usage, Demonstrated understanding of instructions, follow-up care, medications, Prescriptions given X 1. 15:27 Patient left the ED. rv Signatures: Dispatcher [employer] [facility] GrimesAlma mr Anita Smith, RN RN Kylah Mccormack aa4 Wenceslao Dowling MD MD Chava Tran RN RN rv
[2018-03-08 15:43] VITALS: TEMP 97.4; O2SAT 98
[2018-03-08 15:44] VITALS: BP 118/74
== END 2018-03-08 15:27 | disposition home or self-care (01) ==
LOC: ER 13:04
DX: M79.605 Pain in left leg (principal)
CPT/HCPCS: 93971; 99284

== ENCOUNTER 2018-03-15 18:26 | Emergency (ER) | payer BC ==
[2018-03-15] MEDS ORDERED: KETOROLAC 30 MG/ML INJ ONE (20:08)
--- NOTE | 2018-03-15 20:47 | ER ---
Nurse's Notes [facility] Name: Hipolito Wagner Age: 52 yrs Sex: Male : 1965 Arrival Date: 03/15/2018 Time: 18:27 Bed 13 Private MD: Pancho Vora Diagnosis: Pain in left knee Presentation: 03/15 18:55 Presenting complaint: Patient states: L knee pain x 2 weeks ago. No known injury. Pt ss reports he was seen in ER and had an ultrasound to check for DVT and was negative, followed up with PCP who did not order any further imaging. Pt is back today because his pain has not improved. Transition of care: patient was not received from another setting of care. Onset of symptoms was February 2018. Risk Assessment: Do you want to hurt yourself or someone else? Patient reports no desire to harm self or others. Initial Sepsis Screen: Does the patient meet any 2 criteria? No. Patient's initial sepsis screen is negative. Does the patient have a suspected source of infection? No. Patient's initial sepsis screen is negative. Care prior to arrival: None. 18:55 Method Of Arrival: Ambulatory ss 18:55 Acuity: SANTIAGO 4 ss Historical: - Allergies: 18:57 No Known Allergies; ss - PMHx: 18:57 High Cholesterol; Hypertension; GERD; ss - PSHx: 18:57 Cholecystectomy; hemorrhoidectomy; ss - Immunization history:: Adult Immunizations up to date. - Social history:: Smoking status: Patient uses tobacco products, smokes one-half pack cigarettes per day. - Ebola Screening: : Patient denies exposure to infectious person Patient denies travel to an Ebola-affected area in the 21 days before illness onset. Screenin:11 Abuse screen: Denies threats or abuse. Denies injuries from another. Nutritional mg2 screening: No deficits noted. Tuberculosis screening: No symptoms or risk factors identified. Fall Risk None identified. Assessment: 19:04 General: Appears in no apparent distress. comfortable, Behavior is calm, cooperative. mg2 Pain: Complains of pain in LEFT KNEE Pain does not radiate. Pain currently is 6 out of 10 on a pain scale. Quality of pain is described as aching, Pain began gradually, 14 days ago Is intermittent. Neuro: Level of Consciousness is awake, alert, obeys commands, Oriented to person, place, time, situation. Cardiovascular: No deficits noted. Respiratory: Airway is patent Respiratory effort is even, unlabored, Respiratory pattern is regular, symmetrical. GI: No signs and/or symptoms were reported involving the gastrointestinal system. : No signs and/or symptoms were reported regarding the genitourinary system. EENT: No signs and/or symptoms were reported regarding the EENT system. Derm: Skin is intact, is healthy with good turgor, Skin is pink, warm \T\ dry. normal. Musculoskeletal: Circulation, motion, and sensation intact. Capillary refill < 3 seconds. Vital Signs: 18:57 BP 149 / 95; Pulse 71; Resp 17; Temp 98.4(O); Pulse Ox 97% on R/A; Weight 84.82 kg; ss Height 5 ft. 2 in. (157.48 cm); Pain 9/10; 20:57 BP 148 / 78; Pulse 80; Resp 18; Pulse Ox 100% on R/A; Pain 0/10; mg2 18:57 Body Mass Index 34.20 (84.82 kg, 157.48 cm) ED Course: 18:27 Patient arrived in ED. mr 18:27 Pancho Vora MD is Private Physician. mr 18:56 Triage completed. ss 18:56 Deny Anderson, RIDDHI is Primary Nurse. mg2 18:57 Arm band placed on right wrist. ss 19:01 Pushpa Wagner FNP-C is PHCP. snw 19:01 Wenceslao Dowling MD is Attending Physician. snw 19:11 Patient has correct armband on for positive identification. Pulse ox on. NIBP on. mg2 19:11 No provider procedures requiring assistance completed. Patient did not have IV access mg2 during this emergency room visit. 20:19 Patient moved back from ultrasound. ashish 20:20 US Extremity Venous Unilateral Ltd In Process Unspecified. EDMS 20:46 Pancho Vora MD is Referral Physician. snw 20:57 Damian wrap to left knee. mg2 Administered Medications: 20:04 Drug: TORadol 60 mg Route: IM; Site: left gluteus; mg2 20:52 Follow up: Response: No adverse reaction; Marked relief of symptoms mg2 Outcome: 20:46 Discharge ordered by . snw 20:58 Discharged to home ambulatory. mg2 20:58 Condition: stable 20:58 Discharge instructions given to patient, Instructed on discharge instructions, follow up and referral plans. Demonstrated understanding of instructions, follow-up care, medications, Prescriptions given X 1. 20:58 Patient left the ED. mg2 Signatures: Dispatcher [employer] EDMS Pushpa Wagner, FLARER-C FLARER-Csnw Alma Grimes Gail Catherine, RIDDHI RN Rigo Payan jd, Michele, RN RN mg2
--- NOTE | 2018-03-15 20:47 | EDPHYS ---
Physician Documentation [facility] Name: Hipolito Wagner Age: 52 yrs Sex: Male : 1965 Arrival Date: 03/15/2018 Time: 18:27 Bed 13 Private MD: Pancho Vora ED Physician Wenceslao Dowling HPI: 03/15 20:12 This 52 yrs old Male presents to ER via Ambulatory with complaints of Knee snw Pain. 20:12 The patient presents with pain, swelling. The complaints affect the medial aspect of snw left knee. Context: The problem was sustained at home, resulted from an unknown cause, the patient can partially bear weight, the patient is able to ambulate, with mild difficulty, Problem is a result from a previous injury: No. Onset: The symptoms/episode began/occurred suddenly, 2 week(s) ago, and became persistent. Associated signs and symptoms: Pertinent positives: swelling, of the medial aspect of left knee. Severity of symptoms: At their worst the symptoms were moderate. It is unknown whether or not the patient has had similar symptoms in the past. The patient has been recently seen by a physician: the patient's primary care provider, Dr. Vroa 1 day(s) ago, with similar presenting complaints, but the patient's symptoms have persisted. Historical: - Allergies: 18:57 No Known Allergies; ss - PMHx: 18:57 High Cholesterol; Hypertension; GERD; ss - PSHx: 18:57 Cholecystectomy; hemorrhoidectomy; ss - Immunization history:: Adult Immunizations up to date. - Social history:: Smoking status: Patient uses tobacco products, smokes one-half pack cigarettes per day. - Ebola Screening: : Patient denies exposure to infectious person Patient denies travel to an Ebola-affected area in the 21 days before illness onset. ROS: 20:11 Constitutional: Negative for fever, chills, and weight loss, Eyes: Negative for injury, snw pain, redness, and discharge, ENT: Negative for injury, pain, and discharge, Neck: Negative for injury, pain, and swelling, Cardiovascular: Negative for chest pain, palpitations, and edema, Respiratory: Negative for shortness of breath, cough, wheezing, and pleuritic chest pain, Abdomen/GI: Negative for abdominal pain, nausea, vomiting, diarrhea, and constipation, Back: Negative for injury and pain, : Negative for injury, bleeding, discharge, and swelling, Skin: Negative for injury, rash, and discoloration, Neuro: Negative for headache, weakness, numbness, tingling, and seizure. 20:11 MS/extremity: Positive for pain, of the medial aspect of left knee. Exam: 20:10 Constitutional: This is a well developed, well nourished patient who is awake, alert, snw and in no acute distress. Head/Face: Normocephalic, atraumatic. Eyes: Pupils equal round and reactive to light, extra-ocular motions intact. Lids and lashes normal. Conjunctiva and sclera are non-icteric and not injected. Cornea within normal limits. Periorbital areas with no swelling, redness, or edema. ENT: Nares patent. No nasal discharge, no septal abnormalities noted. Tympanic membranes are normal and external auditory canals are clear. Oropharynx with no redness, swelling, or masses, exudates, or evidence of obstruction, uvula midline. Mucous membranes moist. Neck: Trachea midline, no thyromegaly or masses palpated, and no cervical lymphadenopathy. Supple, full range of motion without nuchal rigidity, or vertebral point tenderness. No Meningismus. Chest/axilla: Normal chest wall appearance and motion. Nontender with no deformity. No lesions are appreciated. Cardiovascular: Regular rate and rhythm with a normal S1 and S2. No gallops, murmurs, or rubs. Normal PMI, no JVD. No pulse deficits. Respiratory: Lungs have equal breath sounds bilaterally, clear to auscultation and percussion. No rales, rhonchi or wheezes noted. No increased work of breathing, no retractions or nasal flaring. Abdomen/GI: Soft, non-tender, with normal bowel sounds. No distension or tympany. No guarding or rebound. No evidence of tenderness throughout. Back: No spinal tenderness. No costovertebral tenderness. Full range of motion. Skin: Warm, dry with normal turgor. Normal color with no rashes, no lesions, and no evidence of cellulitis. Neuro: Awake and alert, GCS 15, oriented to person, place, time, and situation. Cranial nerves II-XII grossly intact. Motor strength 5/5 in all extremities. Sensory grossly intact. Cerebellar exam normal. Normal gait. Psych: Awake, alert, with orientation to person, place and time. Behavior, mood, and affect are within normal limits. 20:10 Musculoskeletal/extremity: ROM: intact in all extremities, Circulation is intact in all extremities. pain to left medial leg at level of the knee Vital Signs: 18:57 BP 149 / 95; Pulse 71; Resp 17; Temp 98.4(O); Pulse Ox 97% on R/A; Weight 84.82 kg; ss Height 5 ft. 2 in. (157.48 cm); Pain 9/10; 20:57 BP 148 / 78; Pulse 80; Resp 18; Pulse Ox 100% on R/A; Pain 0/10; mg2 18:57 Body Mass Index 34.20 (84.82 kg, 157.48 cm) ss MDM: 19:56 Patient medically screened. snw 20:47 Data reviewed: vital signs, nurses notes. Data interpreted: Pulse oximetry: on room air snw is 97 %. Interpretation: normal. Counseling: I had a detailed discussion with the patient and/or guardian regarding: the historical points, exam findings, and any diagnostic results supporting the discharge/admit diagnosis, the presence of at least one elevated blood pressure reading (>120/80) during this emergency department visit, radiology results, the need for outpatient follow up, to return to the emergency department if symptoms worsen or persist or if there are any questions or concerns that arise at home. Special discussion: I have referred the patient to see his PCP for further evaluation of high blood pressure. Based on the history and exam findings, there is no indication for further emergent testing or inpatient evaluation. I discussed with the patient/guardian the need to see the orthopedic surgeon for further evaluation of the symptoms. I discussed with the patient/guardian the need to see the primary care provider for further evaluation of the symptoms. 03/15 19:56 Order name: US Extremity Venous Unilateral Ltd snw 03/15 20:45 Order name: Damian wrap-joint; Complete Time: 20:57 snw Administered Medications: 20:04 Drug: TORadol 60 mg Route: IM; Site: left gluteus; mg2 20:52 Follow up: Response: No adverse reaction; Marked relief of symptoms mg2 Disposition: 03/15/18 20:46 Discharged to Home. Impression: Pain in left knee. - Condition is Stable. - Discharge Instructions: Joint Pain, Musculoskeletal Pain, Knee Pain, Cryotherapy, [id number], Heat Therapy. - Prescriptions for Diclofenac Sodium 75 mg Oral Tablet Sustained Release - take 1 tablet by ORAL route 2 times per day; 30 tablet. - Medication Reconciliation Form, Thank You Letter, Antibiotic Education, Prescription Opioid Use form. - Follow up: Pancho Vora MD; When: 1 - 2 days; Reason: Recheck today's complaints, Continuance of care, Re-evaluation by your physician. Follow up: Emergency Department; When: As needed; Reason: Worsening of condition. Addendum: 03/20/2018 07:41 Co-signature as Attending Physician, Wenceslao Dowling MD. g s Signatures: Dispatcher [employer] EDMS Pushpa Wagner, NAHID-C SKIN PASS OPERATOR-Gail Amaro RN RN ss Wenceslao Dowling MD MD Deny Anderson RN RN mg2 Corrections: (The following items were deleted from the chart) 03/15 20:45 20:45 Knee Immobilizer ordered. snw snw 20:58 20:46 03/15/2018 20:46 Discharged to Home. Impression: Pain in left knee. Condition is mg2 Stable. Forms are Medication Reconciliation Form, Thank You Letter, Antibiotic Education, Prescription Opioid Use. Follow up: Pancho Vora; When: 1 - 2 days; Reason: Recheck today's complaints, Continuance of care, Re-evaluation by your physician. Follow up: Emergency Department; When: As needed; Reason: Worsening of condition. snw
--- NOTE | 2018-03-15 21:00 | RAD REPORT ---
EXAM DESCRIPTION: US - Extremity Venous Uni Ltd - 03/15/2018 8:21 pm CLINICAL HISTORY: Leg pain and swelling COMPARISON: None. TECHNIQUE: Real-time sonographic evaluation of the left lower extremity deep venous system was perfo rmed. FINDINGS: Normal compressibility, flow augmentation, phasic flow and spontaneous flow are identified in the left lower extremity common femoral, superficial femoral, popliteal and posterior tibial vein s. No intraluminal filling defects seen. IMPRESSION: No DVT in the left lower extremity.
[2018-03-15 21:04] VITALS: TEMP 98.4
[2018-03-15 21:05] VITALS: BP 148/78; O2SAT 100
== END 2018-03-15 20:58 | disposition home or self-care (01) ==
LOC: ER 18:26
DX: M25.562 Pain in left knee (principal); I10 Essential (primary) hypertension; F17.210 Nicotine dependence, cigarettes, uncomplicated
CPT/HCPCS: 93971; 96372; 99284

== ENCOUNTER 2018-05-19 11:13 | Emergency (ER) | payer BC ==
[2018-05-19] MEDS ORDERED: KETOROLAC 30 MG/ML INJ ONE (14:53)
[2018-05-19 15:02] LABS: Absolute Lymphocytes (CBC) 1.4 K/uL (0.7-4.9); Absolute Monocytes 0.7 K/uL (0.1-1.3); Absolute Neutrophil 6.9 K/uL (1.8-8.0); Basophils % 0.3 % (0-1.3); Eosinophils % 2.1 % (0-4.4); Hematocrit 45.7 % (39.6-49.0); Lymphocytes % 15.5 % (15.3-44.8); Monocytes % 7.1 % (3.3-12.3)
[2018-05-19 15:21] LABS: Potassium 3.4 mmol/L (3.5-5.1)
--- NOTE | 2018-05-19 15:39 | RAD REPORT ---
EXAM DESCRIPTION: US - Extremity Nonvascular Complete - 05/19/2018 2:55 pm CLINICAL HISTORY: Left elbow swelling and redness COMPARISON: None FINDINGS: A fluid collection to suggest an abscess is not visualized. A soft tissue hematoma is not noted. Diffuse edema is present within the subcutaneous tissues IMPRESSION: No sonographic evidence of a soft tissue abscess
--- NOTE | 2018-05-19 16:15 | ER ---
Nurse's Notes [facility] Name: Hipolito Wagner Age: 53 yrs Sex: Male : 1965 Arrival Date: 05/19/2018 Time: 11:17 Bed 27 Private MD: Pancho Vora Diagnosis: Pain in left elbow;Other bursitis of elbow, left elbow Presentation: 05/19 11:36 Presenting complaint: Patient states: yesterday i was at work and my LEFT arm well tw2 elbow got swollen, i dont remember hitting it but it is swollen and i can hardly bend it, it wasn't work related. Transition of care: patient was not received from another setting of care. Onset of symptoms was May 19, 2018. Risk Assessment: Do you want to hurt yourself or someone else? Patient reports no desire to harm self or others. Initial Sepsis Screen: Does the patient meet any 2 criteria? No. Patient's initial sepsis screen is negative. Does the patient have a suspected source of infection? No. Patient's initial sepsis screen is negative. Care prior to arrival: None. 11:36 Method Of Arrival: Ambulatory tw2 11:36 Acuity: SANTIAGO 4 tw2 Triage Assessment: 11:39 General: Appears distressed, Behavior is calm, cooperative, appropriate for age. Pain: tw2 Complains of pain in left elbow. Musculoskeletal: Circulation, motion, and sensation intact. Swelling present in left elbow. Injury Description: n/a. Historical: - Allergies: 11:38 Nitroglycerin; tw2 - Home Meds: 11:38 None [Active]; tw2 - PMHx: 11:38 GERD; High Cholesterol; Hypertension; tw2 - PSHx: 11:38 Cholecystectomy; hemorrhoidectomy; tw2 - Immunization history:: Adult Immunizations. - Social history:: Smoking status: Patient uses tobacco products, smokes one-half pack cigarettes per day. - Ebola Screening: : Patient denies travel to an Ebola-affected area in the 21 days before illness onset. Screenin:45 Abuse screen: Denies threats or abuse. Denies injuries from another. Nutritional ss screening: No deficits noted. Tuberculosis screening: Never had TB. Fall Risk None identified. Assessment: 14:15 General: Appears in no apparent distress. comfortable, Behavior is calm, cooperative, ss Denies fever, feeling ill, fatigue, chills. Pain: Complains of pain in left elbow, headache Pain currently is 7 out of 10 on a pain scale. Quality of pain is described as aching, tender, Pain began "yesterday" Is continuous. Neuro: Level of Consciousness is awake, alert, obeys commands, Oriented to person, place, time, situation, Wedger Machine are equal bilaterally Speech is normal. Cardiovascular: Capillary refill < 3 seconds is brisk in bilateral fingers Patient's skin is warm and dry. Respiratory: Airway is patent Respiratory effort is even, unlabored, Respiratory pattern is regular, symmetrical. GI: Patient currently denies diarrhea, nausea, vomiting. : No signs and/or symptoms were reported regarding the genitourinary system. EENT: Nares are clear Oral mucosa is moist. Throat is clear. Derm: Skin is intact, is healthy with good turgor, Skin is dry, Skin temperature is warm. Musculoskeletal: Swelling present in left elbow. 14:45 Reassessment: Pt to ultrasound now VIA wheelchair. Appears comfortable. ss Vital Signs: 11:37 BP 124 / 80; Pulse 82; Resp 18; Temp 98.2(O); Pulse Ox 98% on R/A; Weight 84.82 kg (R); tw2 Height 5 ft. 2 in. (157.48 cm); Pain 9/10; 16:30 BP 115 / 71; Pulse 60; Resp 20 S; Temp 98.6(O); Pulse Ox 98% on R/A; rv 11:37 Body Mass Index 34.20 (84.82 kg, 157.48 cm) tw2 ED Course: 11:17 Patient arrived in ED. sb2 11:17 Pancho Vora MD is Private Physician. sb2 11:37 Triage completed. tw2 11:38 Arm band placed on. tw2 13:44 Skip Patterson MD is Attending Physician. kdr 14:16 Ayla Koenig RN is Primary Nurse. ca1 14:30 Inserted saline lock: 20 gauge in right antecubital area, using aseptic technique. ss Blood collected. 14:45 Patient has correct armband on for positive identification. ss 14:55 Extremity Nonvascular Complete In Process Unspecified. EDMS 16:13 Pancho Vora MD is Referral Physician. kdr 16:33 No provider procedures requiring assistance completed. IV discontinued, bleeding rv controlled, No redness/swelling at site. Pressure dressing applied. Administered Medications: 14:41 Not Given (other intervention used): morphine 4 mg IVP once ss 15:14 Drug: TORadol 30 mg Route: IVP; Site: right antecubital; rv 16:31 Follow up: Response: Pain is decreased rv 16:32 Not Given (NURSE DISCRETION): Zofran 4 mg IVP once; over 2 minutes rv Outcome: 16:14 Discharge ordered by . kdr 16:33 Discharged to home ambulatory. rv 16:33 Condition: good 16:33 Discharge instructions given to patient, Instructed on discharge instructions, follow up and referral plans. medication usage, Demonstrated understanding of instructions, follow-up care, medications, Prescriptions given X 4. 16:48 Patient left the ED. rv Signatures: Dispatcher [employer] EDMS Skip Patterson MD MD kdr Gail Catherine RN RN ss Claudia Turcios RN RN tw2 Celeste Wells 2 Chava Tran RN RN rv Ayla Koenig RN RN ca1
--- NOTE | 2018-05-19 16:15 | EDPHYS ---
Physician Documentation [facility] Name: Hipolito Wagner Age: 53 yrs Sex: Male : 1965 Arrival Date: 05/19/2018 Time: 11:17 Bed 27 Private MD: Pancho Vora ED Physician Skip Patterson HPI: 05/19 15:11 This 53 yrs old Male presents to ER via Ambulatory with complaints of Elbow kdr Injury. 15:11 The patient or guardian complains of decreased range of motion, pain, that is acute. kdr The complaints affect the left antecubital area, left elbow and palmar aspect of left forearm. Context: The problem was sustained at home, resulted from unknown cause. Onset: The symptoms/episode began/occurred gradually, yesterday. Treatment prior to arrival includes: no previous treatment. Modifying factors: The symptoms are alleviated by remaining still, the symptoms are aggravated by movement, lifting weight, bending arm. Associated signs and symptoms: Pertinent positives: decreased range of motion, erythema, nausea, pain, swelling, warmth, of the left elbow. Severity of symptoms: At their worst the symptoms were mild, moderate, in the emergency department the symptoms are unchanged. The patient has not experienced similar symptoms in the past. The patient has not recently seen a physician. Historical: - Allergies: 11:38 Nitroglycerin; tw2 - Home Meds: 11:38 None [Active]; tw2 - PMHx: 11:38 GERD; High Cholesterol; Hypertension; tw2 - PSHx: 11:38 Cholecystectomy; hemorrhoidectomy; tw2 - Immunization history:: Adult Immunizations. - Social history:: Smoking status: Patient uses tobacco products, smokes one-half pack cigarettes per day. - Ebola Screening: : Patient denies travel to an Ebola-affected area in the 21 days before illness onset. ROS: 15:11 Constitutional: Negative for fever, chills, and weight loss. kdr 15:11 MS/extremity: Positive for decreased range of motion, erythema, pain, tenderness, warmth, of the left antecubital area and left elbow, Negative for injury or acute deformity, abrasion, bite, contusion, deformity, laceration, paresthesias, puncture, tingling. Exam: 15:11 Constitutional: This is a well developed, well nourished patient who is awake, alert, kdr and in no acute distress. Head/Face: Normocephalic, atraumatic. 15:11 Musculoskeletal/extremity: Extremities: grossly normal except: noted in the left elbow: decreased ROM, erythema, pain, tenderness. Vital Signs: 11:37 BP 124 / 80; Pulse 82; Resp 18; Temp 98.2(O); Pulse Ox 98% on R/A; Weight 84.82 kg (R); tw2 Height 5 ft. 2 in. (157.48 cm); Pain 9/10; 16:30 BP 115 / 71; Pulse 60; Resp 20 S; Temp 98.6(O); Pulse Ox 98% on R/A; rv 11:37 Body Mass Index 34.20 (84.82 kg, 157.48 cm) tw2 MDM: 16:14 Patient medically screened. kdr 16:59 Data reviewed: vital signs, nurses notes, lab test result(s), radiologic studies. kdr Counseling: I had a detailed discussion with the patient and/or guardian regarding: the historical points, exam findings, and any diagnostic results supporting the discharge/admit diagnosis, lab results, radiology results, the need for outpatient follow up. 05/19 14:28 Order name: CBC with Diff; Complete Time: 16:12 kdr 05/19 14:28 Order name: Chem 7; Complete Time: 16:12 kdr 05/19 14:28 Order name: ESR; Complete Time: 16:12 kdr 05/19 14:46 Order name: Extremity Nonvascular Complete; Complete Time: 16:12 EDMS Administered Medications: 14:41 Not Given (other intervention used): morphine 4 mg IVP once ss 15:14 Drug: TORadol 30 mg Route: IVP; Site: right antecubital; rv 16:31 Follow up: Response: Pain is decreased rv 16:32 Not Given (NURSE DISCRETION): Zofran 4 mg IVP once; over 2 minutes rv Disposition: 05/19/18 16:14 Discharged to Home. Impression: Pain in left elbow, Other bursitis of elbow, left elbow. - Condition is Stable. - Discharge Instructions: Musculoskeletal Pain, Bursitis, [id number], Joint Pain, [id number]-nj-[id number], Heat Therapy, [id number]. - Prescriptions for Ibuprofen 600 mg Oral Tablet - take 1 tablet by ORAL route every 6 hours As needed take with food; 16 tablet. Keflex 500 mg Oral Capsule - take 1 capsule by ORAL route every 6 hours for 7 days; 28 capsule. Prednisone 20 mg Oral Tablet - take 1 tablet by ORAL route every 12 hours for 5 days; 10 tablet. Tylenol- Codeine #3 300-30 mg Oral Tablet - take 2 tablets by ORAL route every 6 hours As needed Take primarily in the evenings; 15 tablet. - Medication Reconciliation Form, Thank You Letter, Antibiotic Education, Prescription Opioid Use, Work release form form. - Follow up: Pancho Vora MD; When: 2 - 3 days; Reason: If symptoms return, Further diagnostic work-up, Recheck today's complaints, Continuance of care, Re-evaluation by your physician. - Problem is new. - Symptoms have improved. Signatures: Dispatcher [employer] [facility] Skip Patterson MD MD [facility] Gail Catherine RN RN ss Claudia Turcios RN RN tw2 Chava Tran RN RN rv Corrections: (The following items were deleted from the chart) 14:46 14:29 Extrmty Nonvasular Limited+US.RAD.BRZ ordered. [facility] 16:48 16:14 05/19/2018 16:14 Discharged to Home. Impression: Pain in left elbow; Other rv bursitis of elbow, left elbow. Condition is Stable. Forms are Medication Reconciliation Form, Thank You Letter, Antibiotic Education, Prescription Opioid Use. Follow up: Pancho Vora; When: 2 - 3 days; Reason: If symptoms return, Further diagnostic work-up, Recheck today's complaints, Continuance of care, Re-evaluation by your physician. Problem is new. Symptoms have improved. kdr
[2018-05-19 17:48] VITALS: O2SAT 98
[2018-05-19 17:49] VITALS: BP 115/71; TEMP 98.6
== END 2018-05-19 16:48 | disposition home or self-care (01) ==
LOC: ER 11:13
DX: M71.522 Other bursitis, not elsewhere classified, left elbow (principal); I10 Essential (primary) hypertension; F17.210 Nicotine dependence, cigarettes, uncomplicated; Z88.8 Allergy status to other drugs, medicaments and biological substances
CPT/HCPCS: 36415; 76881; 80048; 85025; 85652; 96374; 99284

== ENCOUNTER 2018-07-27 18:26 | Emergency (ER) | payer BC ==
--- OUTSIDE RECORDS SUMMARY | 2018-07-27 18:27 | XMS REPORT ---
:1965 Author Organization eClinical[employer] Care Team Providers Name Role Phone Tamir Lundberg Provider Role Unavailable Allergies, Adverse Reactions, Alerts Substance Reaction Event Type Nitroglycerin Info Not Available Drug Allergy Problems Problem Type Condition Code Onset Dates Condition Status Problem Left elbow pain M25.522 Active Problem Contusion of left elbow, initial S50.02XA Active encounter Assessment Olecranon bone spur M25.729 Active Assessment Left elbow pain M25.522 Active Assessment Contusion of left elbow, initial S50.02XA Active encounter Medications Medication Code System Code Instructions Start Date End Date Status Dosage Ibuprofen NDC 0 Active not defined Cephalexin [facility] 03428-919 Active not defined 1-50 PredniSONE [facility] 46515-384 Active not defined 2-43 Clotrimazole [facility] 02309-076 Active not defined 7-14 Results No Known Results Summary Purpose eClinicalWorks Submission
[2018-07-27] MEDS ORDERED: IBUPROFEN 400 MG TAB ONE (19:41)
[2018-07-27] MEDS ORDERED: ACETAMINOPHEN 500 MG TAB ONE (19:42)
--- NOTE | 2018-07-27 19:49 | RAD REPORT ---
EXAM DESCRIPTION: RAD - Foot Left 2 View - 07/27/2018 7:38 pm CLINICAL HISTORY: Left Foot pain FINDINGS: No fracture or dislocation is seen. Moderate plantar calcaneal spur. No bony destructive lesions seen
[2018-07-27 19:57] LABS: Absolute Lymphocytes (CBC) 1.7 K/uL (0.7-4.9); Absolute Monocytes 0.8 K/uL (0.1-1.3); Absolute Neutrophil 5.8 K/uL (1.8-8.0); Basophils % 0.6 % (0-1.3); Eosinophils % 3.3 % (0-4.4); Hematocrit 46.7 % (39.6-49.0); Lymphocytes % 19.9 % (15.3-44.8); MPV 8.9 fL (7.6-11.3); Monocytes % 9.4 % (3.3-12.3); RBC Red Blood Cell Count 5.24 M/uL (4.33-5.43)
[2018-07-27 20:11] LABS: Albumin 4.4 g/dL (3.4-5.0); Bilirubin Direct 0.1 mg/dL (0-0.2); Bilirubin Total 0.6 mg/dL (0.2-1.0); Potassium 3.7 mmol/L (3.5-5.1); Protein, Total 7.9 g/dL (6.4-8.2)
[2018-07-27 20:56] LABS: Urine Blood NEGATIVE (NEG); Urine Glucose NEGATIVE (NEG); Urine Protein 1+ (NEG); Urine Specific Gravity >1.030 (1.005-1.030); Urine pH 5.5 (5.0-7.0)
[2018-07-27] MEDS ORDERED: LIDOCAINE 1% W/EPI 1:100,000 MDV 50 ML VIAL ONE (20:58)
[2018-07-27] MEDS ORDERED: SMZ./TMP. 800/160 MG TABLET ONE (21:43)
[2018-07-27] MEDS ORDERED: CLINDAMYCIN 600MG/D5W 600 MG/50 ML BAG IV ONE (21:44)
--- NOTE | 2018-07-27 22:17 | ER ---
Nurse's Notes [facility] Name: Hipolito Wagner Age: 53 yrs Sex: Male : 1965 Arrival Date: 07/27/2018 Time: 18:28 Bed 20 Private MD: Pancho Vora Diagnosis: Cellulitis of left lower limb-left foot Presentation: 07/27 18:43 Presenting complaint: Abscess on top of left foot x 2 days. Transition of care: patient hb was not received from another setting of care. Onset of symptoms was July 26, 2018. Risk Assessment: Do you want to hurt yourself or someone else? Patient reports no desire to harm self or others. Care prior to arrival: None. 18:43 Method Of Arrival: Ambulatory hb 18:43 Acuity: SANTIAGO 4 hb 18:50 Initial Sepsis Screen: Does the patient meet any 2 criteria? No. Patient's initial tw2 sepsis screen is negative. Does the patient have a suspected source of infection? No. Patient's initial sepsis screen is negative. Triage Assessment: 18:50 Bite description: by an unknown animal, animal information:. tw2 Historical: - Allergies: 18:44 Nitroglycerin; hb - PMHx: 18:44 GERD; High Cholesterol; Hypertension; hb - PSHx: 18:44 Cholecystectomy; hemorrhoidectomy; hb - Immunization history:: Adult Immunizations up to date. - Social history:: Smoking status: Patient uses tobacco products, smokes one-half pack cigarettes per day. - Ebola Screening: : No symptoms or risks identified at this time. Screenin:50 Abuse screen: Denies threats or abuse. Nutritional screening: No deficits noted. tw2 Tuberculosis screening: No symptoms or risk factors identified. Fall Risk None identified. Assessment: 18:48 General: Appears in no apparent distress. well groomed, Behavior is calm, cooperative, tw2 appropriate for age. Pain: Complains of pain in dorsum of left foot. Neuro: Level of Consciousness is awake, alert, obeys commands, Oriented to person, place, time, Appropriate for age. Cardiovascular: Patient's skin is warm and dry. Respiratory: Airway is patent Respiratory effort is even, unlabored, Respiratory pattern is regular, symmetrical. GI: No signs and/or symptoms were reported involving the gastrointestinal system. : No signs and/or symptoms were reported regarding the genitourinary system. EENT: No signs and/or symptoms were reported regarding the EENT system. Derm: Skin is intact, is healthy with good turgor, Skin is pink, warm \T\ dry. Abscess located on dorsum of left foot is dime sized. Musculoskeletal: Circulation, motion, and sensation intact. Range of motion: intact in all extremities. 19:15 Reassessment: Patient appears in no apparent distress at this time. Patient and/or cc3 family updated on plan of care and expected duration. Pain level reassessed. Patient is alert, oriented x 3, equal unlabored respirations, skin warm/dry/pink. Received this male patient from morning shift RN Claudia as a case of insect bite to his left leg and foot. No IV cannula in situ. Seen by DEMETRIA Park awaiting orders. 20:17 Reassessment: Patient appears in no apparent distress at this time. Patient and/or cc3 family updated on plan of care and expected duration. Pain level reassessed. Patient is alert, oriented x 3, equal unlabored respirations, skin warm/dry/pink. 21:12 Reassessment: Patient appears in no apparent distress at this time. Patient and/or cc3 family updated on plan of care and expected duration. Pain level reassessed. Patient is alert, oriented x 3, equal unlabored respirations, skin warm/dry/pink. 22:40 Reassessment: Patient appears in no apparent distress at this time. Patient and/or cc3 family updated on plan of care and expected duration. Pain level reassessed. Patient is alert, oriented x 3, equal unlabored respirations, skin warm/dry/pink. DEMETRIA Park discharged the patient home with prescription given. IV cannula removed and patient left ER vitally stable and ambulatory. Patient denies pain at this time. Patient states feeling better. Patient states symptoms have improved. Vital Signs: 18:44 BP 120 / 84; Pulse 82; Resp 16; Temp 98.5; Pulse Ox 97% on R/A; Pain 10/10; hb 20:07 BP 125 / 74; Pulse 71; Resp 16 S; Pulse Ox 97% ; cc3 20:45 BP 124 / 70; Pulse 65; Resp 16 S; Pulse Ox 97% on R/A; cc3 21:12 BP 127 / 73; Pulse 68; Resp 17 S; Pulse Ox 97% on R/A; cc3 22:25 BP 122 / 77; Pulse 65; Resp 16 S; Pulse Ox 98% on R/A; cc3 ED Course: 18:28 Patient arrived in ED. mr 18:29 Pancho Vora MD is Private Physician. mr 18:44 Triage completed. hb 18:44 Arm band placed on. hb 18:45 Mickey Park PA is PHCP. cp 18:45 Mickey Davila MD is Attending Physician. cp 18:45 Bed in low position. Call light in reach. tw2 19:13 First set of blood cultures drawn. mt 19:18 Tiffany Magana is Primary Nurse. cc3 19:38 XRAY Foot LEFT 2 View In Process Unspecified. EDMS 19:38 Second set of blood cultures drawn by me. mt 19:44 Inserted saline lock: 20 gauge in right antecubital area, using aseptic technique. mt Blood collected. 22:15 Pancho Vora MD is Referral Physician. cp 22:40 No provider procedures requiring assistance completed. IV discontinued, intact, cc3 bleeding controlled, No redness/swelling at site. Pressure dressing applied. Administered Medications: 19:30 Drug: Ibuprofen 800 mg Route: PO; cc3 20:49 Follow up: Response: No adverse reaction; Pain is decreased cc3 19:30 Drug: Tylenol 1000 mg Route: PO; cc3 20:49 Follow up: Response: No adverse reaction; Pain is decreased cc3 21:20 Drug: Lidocaine-Epinephrine -1%: (1:100,000) 5 ml {Note: administered by DEMETRIA Arevalo cc3 Page.} Volume: 20 ml; Route: Infiltration; 21:35 Follow up: Response: No adverse reaction cc3 21:30 Drug: Bactrim (160 mg-800 mg (DS) 1 tablet Route: PO; cc3 22:00 Follow up: Response: No adverse reaction cc3 21:35 Drug: Clindamycin 600 mg Route: IVPB; Infused Over: 30 mins; Site: right antecubital; cc3 22:10 Follow up: Response: No adverse reaction; IV Status: Completed infusion; IV Intake: [id number] Point of Care Testing: Blood Glucose: 19:26 Blood Glucose: 96 mg/dL; cc3 Ranges: Intake: 22:10 IV: 50ml; Total: 50ml. cc3 Outcome: 22:16 Discharge ordered by . cp 22:40 Discharged to home ambulatory. cc3 22:40 Condition: stable 22:40 Discharge instructions given to patient, Instructed on discharge instructions, follow up and referral plans. medication usage, Demonstrated understanding of instructions, follow-up care, medications, wound care, Prescriptions given X 4. 22:45 Patient left the ED. cc3 Signatures: Dispatcher [employer] EDNJ GrimesAlma Corey, Viktoria Torres cp, RIDDHI RN Claudia Jacobs RN RN tw2 Chiqui Zayas wy Tiffany Magana cc3
--- NOTE | 2018-07-27 22:17 | EDPHYS ---
Physician Documentation [facility] Name: Hipolito Wagner Age: 53 yrs Sex: Male : 1965 Arrival Date: 07/27/2018 Time: 18:28 Bed 20 Private MD: Pancho Vora ED Physician Mickey Davila HPI: 07/27 19:20 This 53 yrs old Male presents to ER via Ambulatory with complaints of Insect cp Bite. 19:20 The patient presents with pain, that is acute, swelling, tenderness. The complaints cp affect the dorsum of left foot. Context: possible insect bite. Onset: The symptoms/episode began/occurred 2 day(s) ago. 19:20 Associated signs and symptoms: Pertinent positives: swelling, warmth, Pertinent cp negatives: calf tenderness, fever. Severity of symptoms: in the emergency department the symptoms are unchanged, despite home interventions. Historical: - Allergies: 18:44 Nitroglycerin; hb - PMHx: 18:44 GERD; High Cholesterol; Hypertension; hb - PSHx: 18:44 Cholecystectomy; hemorrhoidectomy; hb - Immunization history:: Adult Immunizations up to date. - Social history:: Smoking status: Patient uses tobacco products, smokes one-half pack cigarettes per day. - Ebola Screening: : No symptoms or risks identified at this time. ROS: 19:30 Constitutional: Negative for body aches, chills, fever. cp 19:30 Eyes: Negative for injury, pain, redness, and discharge. cp 19:30 Cardiovascular: Negative for chest pain, edema, palpitations. 19:30 Respiratory: Negative for cough, shortness of breath, wheezing. 19:30 MS/extremity: Negative for injury or acute deformity, decreased range of motion. 19:30 Skin: Positive for erythema, swelling, of the dorsum of left foot. 19:30 Neuro: Negative for altered mental status, headache, weakness. 19:30 All other systems are negative. Exam: 19:45 Constitutional: The patient appears in no acute distress, alert, awake, non-toxic, well cp developed, well nourished. 19:45 Head/Face: Normocephalic, atraumatic. cp 19:45 Eyes: Periorbital structures: appear normal, Conjunctiva: normal, no exudate, no injection, Sclera: no appreciated abnormality, Lids and lashes: appear normal, bilaterally. 19:45 ENT: External ear(s): are unremarkable, Nose: is normal, Mouth: Lips: moist, Oral mucosa: moist, Posterior pharynx: Airway: no evidence of obstruction, patent. 19:45 Chest/axilla: Inspection: normal, Palpation: is normal, no crepitus, no tenderness. 19:45 Cardiovascular: Rate: normal, Rhythm: regular, Edema: is not appreciated. 19:45 Respiratory: the patient does not display signs of respiratory distress, Respirations: normal, no use of accessory muscles, labored breathing, is not present. 19:45 Abdomen/GI: Inspection: abdomen appears normal, Palpation: abdomen is soft and non-tender, in all quadrants. 19:45 Skin: cellulitis, irregular, on the dorsum of left foot, induration, that is mild is noted, located on the dorsum of left foot. Vital Signs: 18:44 BP 120 / 84; Pulse 82; Resp 16; Temp 98.5; Pulse Ox 97% on R/A; Pain 10/10; hb 20:07 BP 125 / 74; Pulse 71; Resp 16 S; Pulse Ox 97% ; cc3 20:45 BP 124 / 70; Pulse 65; Resp 16 S; Pulse Ox 97% on R/A; cc3 21:12 BP 127 / 73; Pulse 68; Resp 17 S; Pulse Ox 97% on R/A; cc3 22:25 BP 122 / 77; Pulse 65; Resp 16 S; Pulse Ox 98% on R/A; cc3 MDM: 18:45 Patient medically screened. cp 19:35 Differential diagnosis: cellulitis, abscess. cp 22:15 Data reviewed: vital signs, nurses notes, lab test result(s), radiologic studies, plain cp films. Test interpretation: by ED physician or midlevel provider: plain radiologic studies. Counseling: I had a detailed discussion with the patient and/or guardian regarding: the historical points, exam findings, and any diagnostic results supporting the discharge/admit diagnosis, lab results, radiology results, the need for outpatient follow up, a family practitioner, to return to the emergency department if symptoms worsen or persist or if there are any questions or concerns that arise at home. Response to treatment: the patient's symptoms have mildly improved after treatment, and as a result, I will discharge patient. 04/24 19:14 Order name: LFT's cp 07/27 19:14 Order name: Basic Metabolic Panel; Complete Time: 20:23 cp 07/27 20:23 Interpretation: Normal except: GFR 70. cp 07/27 19:14 Order name: Blood Culture Adult (2) cp 07/27 19:14 Order name: CBC with Diff; Complete Time: 20:23 cp 07/27 22:15 Interpretation: Normal except: PLT 136. cp 07/27 19:14 Order name: Lactate; Complete Time: 20:23 cp 07/27 19:14 Order name: Procalcitonin; Complete Time: 21:25 cp 07/27 19:14 Order name: XRAY Foot LEFT 2 View; Complete Time: 20:23 cp 07/27 19:15 Order name: Liver (Hepatic) Function; Complete Time: 20:23 EDMS 07/27 20:42 Order name: Urine Dipstick--Ancillary (enter results); Complete Time: 21:25 mw2 07/27 19:14 Order name: Accucheck; Complete Time: 19:27 cp 07/27 19:14 Order name: Cardiac monitoring; Complete Time: 19:19 cp 07/27 19:14 Order name: IV Saline Lock - Large Bore; Complete Time: 19:45 cp 07/27 19:14 Order name: Labs collected and sent; Complete Time: 19:45 cp 07/27 19:14 Order name: O2 Per Protocol; Complete Time: 19:19 cp 07/27 19:14 Order name: O2 Sat Monitoring; Complete Time: 19:19 cp 07/27 19:14 Order name: Urine Dipstick-Ancillary (obtain specimen); Complete Time: 20:48 cp Administered Medications: 19:30 Drug: Ibuprofen 800 mg Route: PO; cc3 20:49 Follow up: Response: No adverse reaction; Pain is decreased cc3 19:30 Drug: Tylenol 1000 mg Route: PO; cc3 20:49 Follow up: Response: No adverse reaction; Pain is decreased cc3 21:20 Drug: Lidocaine-Epinephrine -1%: (1:100,000) 5 ml {Note: administered by DEMETRIA Arevalo cc3 Page.} Volume: 20 ml; Route: Infiltration; 21:35 Follow up: Response: No adverse reaction cc3 21:30 Drug: Bactrim (160 mg-800 mg (DS) 1 tablet Route: PO; cc3 22:00 Follow up: Response: No adverse reaction cc3 21:35 Drug: Clindamycin 600 mg Route: IVPB; Infused Over: 30 mins; Site: right antecubital; cc3 22:10 Follow up: Response: No adverse reaction; IV Status: Completed infusion; IV Intake: [id number] Point of Care Testing: Blood Glucose: 19:26 Blood Glucose: 96 mg/dL; cc3 Ranges: Critical Glucose Levels:Adult <50 mg/dl or >400 mg/dl <40 mg/dl or >180 mg/dl Disposition: 07/27/18 22:16 Discharged to Home. Impression: Cellulitis of left lower limb - left foot. - Condition is Stable. - Discharge Instructions: Cellulitis, Adult. - Prescriptions for Clindamycin HCl 300 mg Oral Capsule - take 1 capsule by ORAL route every 6 hours for 10 days; 40 capsule. Ibuprofen 800 mg Oral Tablet - take 1 tablet by ORAL route every 8 hours As needed take with food; 30 tablet. Tylenol- Codeine #3 300-30 mg Oral Tablet - take 2 tablets by ORAL route every 8 hours As needed; 15 tablet. Bactrim DS 800- 160 mg Oral Tablet - take 1 tablet by ORAL route every 12 hours for 10 days; 20 tablet. - Medication Reconciliation Form, Thank You Letter, Antibiotic Education, Prescription Opioid Use, Work release form form. - Follow up: Pancho Vora MD; When: 48 Hours; Reason: Recheck today's complaints. - Problem is new. - Symptoms have improved. Signatures: Dispatcher [employer] EDMS Mickey Park PA PA cp Baxter, Heather, RN RN Tiffany Powell cc3 Corrections: (The following items were deleted from the chart) 22:45 22:16 07/27/2018 22:16 Discharged to Home. Impression: Cellulitis of left lower limb - cc3 left foot. Condition is Stable. Forms are Medication Reconciliation Form, Thank You Letter, Antibiotic Education, Prescription Opioid Use. Follow up: Pancho Vora; When: 48 Hours; Reason: Recheck today's complaints. Problem is new. Symptoms have improved. cp
[2018-07-27 23:18] VITALS: TEMP 98.5; O2SAT 97
[2018-07-27 23:21] VITALS: BP 124/70
== END 2018-07-27 22:45 | disposition home or self-care (01) ==
LOC: ER 18:26
DX: L03.116 Cellulitis of left lower limb (principal); F17.210 Nicotine dependence, cigarettes, uncomplicated; Z88.8 Allergy status to other drugs, medicaments and biological substances
CPT/HCPCS: 36415; 80048; 80076; 81003; 82962; 83605; 84145; 85025; 87040; 96365; 99284

== ENCOUNTER 2018-10-03 19:52 | Emergency (ER) | payer BC ==
--- OUTSIDE RECORDS SUMMARY | 2018-10-03 19:54 | XMS REPORT ---
[...] Ibuprofen NDC 0 Active not defined Cephalexin [facility] 45239-758 Active not defined 1-50 PredniSONE [facility] 65390-014 Active not defined 2-43 Clotrimazole [facility] 83230-655 Active not defined 7-14 Results No Known Results Summary Purpose eClinicalWorks Submission
--- OUTSIDE RECORDS SUMMARY | 2018-10-03 19:55 | XMS REPORT ---
:1965 Author Organization eClinicalWorks Care Team Providers Name Role Phone Beth Reina Provider Role Unavailable Allergies, Adverse Reactions, Alerts Substance Reaction Event Type Nitroglycerin Info Not Available Drug Allergy Problems Problem Type Condition Code Onset Dates Condition Status Problem Skin infection L08.9 Active Problem Left elbow pain M25.522 Active Problem Left foot pain M79.672 Active Assessment Skin infection L08.9 Active Assessment Left foot pain M79.672 Active Problem Contusion of left elbow, initial S50.02XA Active encounter Medications Medication Code System Code Instructions Start Date End Date Status Dosage Clotrimazole [facility] 38348-574 Active not defined 7-14 Cephalexin [facility] 66157-751 Active not defined 1-50 Clindamycin HCl [facility] 17528-272 Active not defined 5-20 Bactrim DS [facility] 48070-317 Active not defined 6-01 Ibuprofen ND 0 Active not defined PredniSONE [facility] 11456-104 Active not defined 2-43 Results No Known Results Summary Purpose eClinicalWorks Submission
[2018-10-03] MEDS ORDERED: HYDROCODONE/CHLORPHEN 5 ML/OSYR ONE (23:28)
[2018-10-04 00:04] LABS: Urine Blood NEGATIVE (NEG); Urine Glucose NEGATIVE (NEG); Urine Protein 1+ (NEG); Urine Specific Gravity 1.015 (1.005-1.030)
--- NOTE | 2018-10-04 00:09 | ER ---
Nurse's Notes [facility] Name: Hipolito Wagner Age: 53 yrs Sex: Male : 1965 Arrival Date: 10/03/2018 Time: 19:54 Bed 18 Private MD: Pancho Vora Diagnosis: Dehydration;Cough;Headache Presentation: 10/03 20:27 Presenting complaint: Patient states: "I have a bad headache, and I have been coughing, jd3 and I have this pain in my back, maybe my kidney, and my left ear has been giving trouble. also when coughing it hurts to breath.". Transition of care: patient was not received from another setting of care. Onset of symptoms was October 03, 2018. Risk Assessment: Do you want to hurt yourself or someone else? Patient reports no desire to harm self or others. Initial Sepsis Screen: Does the patient meet any 2 criteria? HR > 90 bpm. No. Patient's initial sepsis screen is negative. Does the patient have a suspected source of infection? No. Patient's initial sepsis screen is negative. Care prior to arrival: None. 20:27 Method Of Arrival: Ambulatory jd3 20:27 Acuity: SANTIAGO 3 jd3 Triage Assessment: 21:28 Headache History: The patient has had previous headaches and this one is more severe cc3 than previous episodes. General: Appears in no apparent distress. uncomfortable, Behavior is calm, cooperative, appropriate for age. Pain: Pain currently is 10 out of 10 on a pain scale. Pain began suddenly, Also complains of no other associated symptoms. Historical: - Allergies: 20:31 Nitroglycerin; jd3 - Home Meds: 20:31 Ciprodex otic otic [Active]; Cephalexin Oral [Active]; terbinafine HCl oral oral jd3 [Active]; - PMHx: 20:31 GERD; High Cholesterol; Hypertension; jd3 - PSHx: 20:31 Cholecystectomy; hemorrhoidectomy; jd3 - Immunization history:: Adult Immunizations up to date. - Social history:: Smoking status: Patient uses tobacco products, denies chronic smoking, but will smoke occasionally. - Ebola Screening: : Patient negative for fever greater than or equal to 101.5 degrees Fahrenheit, and additional compatible Ebola Virus Disease symptoms. Screenin:28 Abuse screen: Denies threats or abuse. Denies injuries from another. Nutritional cc3 screening: No deficits noted. Tuberculosis screening: No symptoms or risk factors identified. Fall Risk Ambulatory Aid- None/Bed Rest/Nurse Assist (0 pts). Gait- Normal/Bed Rest/Wheelchair (0 pts) Mental Status- Oriented to own ability (0 pts). Assessment: 21:28 General: Appears in no apparent distress. uncomfortable, Behavior is calm, cooperative, cc3 appropriate for age. Pain: Complains of pain in head, back. Neuro: Level of Consciousness is awake, alert, obeys commands, Oriented to person, place, time, situation, Appropriate for age. Cardiovascular: Denies chest pain, Capillary refill < 3 seconds Patient's skin is warm and dry. Respiratory: Airway is patent Respiratory effort is even, unlabored, Respiratory pattern is regular, symmetrical. GI: Abdomen is round non-distended. : No signs and/or symptoms were reported regarding the genitourinary system. EENT: No signs and/or symptoms were reported regarding the EENT system. Derm: Skin is intact, is healthy with good turgor, Skin is pink, warm \\T\\ dry. normal. Musculoskeletal: Circulation, motion, and sensation intact. Range of motion: intact in all extremities. 22:26 Reassessment: Patient appears in no apparent distress at this time. Patient and/or cc3 family updated on plan of care and expected duration. Pain level reassessed. Patient is alert, oriented x 3, equal unlabored respirations, skin warm/dry/pink. 23:18 Reassessment: Patient appears in no apparent distress at this time. Patient and/or cc3 family updated on plan of care and expected duration. Pain level reassessed. Patient is alert, oriented x 3, equal unlabored respirations, skin warm/dry/pink. Patient denies pain at this time. 10/04 00:40 Reassessment: Patient appears in no apparent distress at this time. Patient and/or cc3 family updated on plan of care and expected duration. Pain level reassessed. Patient is alert, oriented x 3, equal unlabored respirations, skin warm/dry/pink. PRETTY Eckert discharged the patient home with prescriptions given. No IV cannula in situ. 01:00 Reassessment: Patient appears in no apparent distress at this time. Patient and/or cc3 family updated on plan of care and expected duration. Pain level reassessed. Patient is alert, oriented x 3, equal unlabored respirations, skin warm/dry/pink. PRETTY Eckert said he'll cancel his discharge order and he'll order for CT scan for the patient. 01:23 Reassessment: Patient taken by blood bank technician to their department by wheelchair. cc3 01:40 Reassessment: Patient appears in no apparent distress at this time. Patient and/or cc3 family updated on plan of care and expected duration. Pain level reassessed. Patient is alert, oriented x 3, equal unlabored respirations, skin warm/dry/pink. Patient came back from CT scan department, awaiting result. 02:23 Reassessment: Patient appears in no apparent distress at this time. Patient and/or cc3 family updated on plan of care and expected duration. Pain level reassessed. Patient is alert, oriented x 3, equal unlabored respirations, skin warm/dry/pink. PRETTY Eckert ordered discharge for the patient after completion of IV fluids. 03:40 Reassessment: Patient appears in no apparent distress at this time. Patient and/or cc3 family updated on plan of care and expected duration. Pain level reassessed. Patient is alert, oriented x 3, equal unlabored respirations, skin warm/dry/pink. PRETTY Eckert discharged the patient home with prescriptions given. IV cannula removed and patient left ER vitally stable and ambulatory. Patient denies pain at this time. Patient states feeling better. Patient states symptoms have improved. Vital Signs: 10/03 20:32 BP 110 / 72; Pulse 100; Resp 20 S; Temp 98.5(O); Pulse Ox 97% on R/A; Weight 80.74 kg jd3 (R); Height 5 ft. 2 in. (157.48 cm) (R); Pain 10/10; 21:40 BP 136 / 79; Pulse 75; Resp 19 S; Pulse Ox 95% on R/A; cc3 22:26 BP 138 / 77; Pulse 75; Resp 19 S; Pulse Ox 96% on R/A; cc3 23:30 BP 126 / 87; Pulse 71; Resp 17 S; Pulse Ox 96% on R/A; cc3 10/04 00:15 BP 109 / 72; Pulse 70; Resp 17 S; Pulse Ox 96% on R/A; cc3 01:15 BP 110 / 71; Pulse 71; Resp 17 S; Pulse Ox 96% on R/A; cc3 02:30 BP 113 / 81; Pulse 63; Resp 17 S; Pulse Ox 97% on R/A; cc3 03:30 BP 120 / 85; Pulse 60; Resp 17 S; Pulse Ox 98% on R/A; Pain 0/10; cc3 10/03 20:32 Body Mass Index 32.56 (80.74 kg, 157.48 cm) jd3 ED Course: 10/03 19:54 Patient arrived in ED. es 19:55 Pancho Vora MD is Private Physician. es 20:28 Triage completed. jd3 20:32 Arm band placed on. jd3 21:28 Tiffany Magana is Primary Nurse. cc3 21:28 Patient has correct armband on for positive identification. Placed in gown. Bed in low cc3 position. Call light in reach. Side rails up X 1. Pulse ox on. NIBP on. 21:29 Babar Lopes NP is PHCP. pm1 21:29 Mickey Davila MD is Attending Physician. pm1 23:04 Chest Pa And Lat (2 Views) XRAY In Process Unspecified. EDMS 10/04 01:15 Inserted saline lock: 22 gauge in right antecubital area, using aseptic technique. cc3 Blood collected. inserted by orthotic and prosthetic technician Kenyd. 01:18 Tiffany Magana is Primary Nurse. cc3 01:38 CT Stone Protocol In Process Unspecified. EDMS 03:40 No provider procedures requiring assistance completed. IV discontinued, intact, cc3 bleeding controlled, No redness/swelling at site. Pressure dressing applied. Administered Medications: 10/03 23:05 Drug: Tussionex Pennkinetic ER 5 ml Route: PO; cc3 23:30 Follow up: Response: No adverse reaction cc3 10/04 02:30 Drug: NS 0.9% 1000 ml Route: IV; Rate: 1000 ml; Site: right antecubital; cc3 03:30 Follow up: Response: No adverse reaction; IV Status: Completed infusion; IV Intake: cc3 1000ml Intake: 03:30 IV: 1000ml; Total: 1000ml. cc3 Outcome: 00:08 Discharge ordered by MD. pm1 02:23 Discharge ordered by MD. pm1 03:40 Discharged to home ambulatory. cc3 03:40 Condition: stable 03:40 Discharge instructions given to patient, Instructed on discharge instructions, follow up and referral plans. medication usage, Demonstrated understanding of instructions, follow-up care, medications, Prescriptions given X 2. 03:50 Patient left the ED. cc3 Signatures: Dispatcher [employer] EDMS Esha Salazar Patrick, NP DISPLAY SCREEN FABRICATOR pm1 Mark Anthony Cam RN RN jd3 Tiffany Mgaana cc3 Corrections: (The following items were deleted from the chart) 10/03 20:32 20:27 Presenting complaint: Patient states: "I have a bad headache, and I have been jd3 coughing, and I have this pain in my back, maybe my kidney, and my left ear has been giving trouble." jd3 10/04 00:29 10/03 21:40 BP 136 / 79; Pulse 75bpm; Resp 17bpm; Spontaneous; Pulse Ox 95% RA; cc3 cc3 10/04 01:51 10/03 21:28 Pain: Pain currently is 5 out of 10 on a pain scale. Pain began suddenly, cc3 Also complains of no other associated symptoms. cc3 10/04 01:53 10/03 23:18 Reassessment: Patient appears in no apparent distress at this time. Patient cc3 and/or family updated on plan of care and expected duration. Pain level reassessed. Patient is alert, oriented x 3, equal unlabored respirations, skin warm/dry/pink. cc3 10/04 02:34 01:15 Inserted saline lock: 20 gauge in right antecubital area, using aseptic cc3 technique. Blood collected. inserted by orthotic and prosthetic technician Kendy cc3 03:58 02:18 Reassessment: Patient appears in no apparent distress at this time. Patient cc3 and/or family updated on plan of care and expected duration. Pain level reassessed. Patient is alert, oriented x 3, equal unlabored respirations, skin warm/dry/pink. cc3 04:00 03:30 BP 120 / 85; Pulse 60bpm; Resp 17bpm; Spontaneous; Pulse Ox 98% RA; cc3 cc3
--- NOTE | 2018-10-04 00:09 | EDPHYS ---
Physician Documentation [facility] Name: Hipolito Wagner Age: 53 yrs Sex: Male : 1965 Arrival Date: 10/03/2018 Time: 19:54 Bed 18 Private MD: Pancho Vora ED Physician Mickey Davila HPI: 10/03 22:06 This 53 yrs old Male presents to ER via Ambulatory with complaints of pm1 Headache, Cough, Kidney pain. 22:06 The patient or guardian reports cough, with no sputum. pm1 10/04 02:29 Onset: The symptoms/episode began/occurred 3 day(s) ago. Severity of symptoms: in the pm1 emergency department the symptoms are actually worse. Modifying factors: The symptoms are alleviated by nothing, the symptoms are aggravated by coughing makes his back pain worse. Associated signs and symptoms: Pertinent positives: earache, Pertinent negatives: chest pain, fever. The patient has experienced a previous episode, Feels that his symptoms are similar to when he had some kidney issues. The patient has not recently seen a physician, the patient's primary care provider is Dr. Vora. Historical: - Allergies: 10/03 20:31 Nitroglycerin; jd3 - Home Meds: 20:31 Ciprodex otic otic [Active]; Cephalexin Oral [Active]; terbinafine HCl oral oral jd3 [Active]; - PMHx: 20:31 GERD; High Cholesterol; Hypertension; jd3 - PSHx: 20:31 Cholecystectomy; hemorrhoidectomy; jd3 - Immunization history:: Adult Immunizations up to date. - Social history:: Smoking status: Patient uses tobacco products, denies chronic smoking, but will smoke occasionally. - Ebola Screening: : Patient negative for fever greater than or equal to 101.5 degrees Fahrenheit, and additional compatible Ebola Virus Disease symptoms. ROS: 10/04 02:29 Constitutional: Negative for fever, chills, and weight loss, Eyes: Negative for injury, pm1 pain, redness, and discharge, ENT: Negative for injury, pain, and discharge, Neck: Negative for injury, pain, and swelling, Cardiovascular: Negative for chest pain, palpitations, and edema. Abdomen/GI: Negative for abdominal pain, nausea, vomiting, diarrhea, and constipation, : Negative for injury, bleeding, discharge, and swelling, MS/Extremity: Negative for injury and deformity, Skin: Negative for injury, rash, and discoloration. Respiratory: Positive for cough, Negative for shortness of breath, sputum production, wheezing. Back: Positive for of the right subscapular area, with coughing. Neuro: Positive for headache, Negative for altered mental status, dizziness, numbness, tingling. Exam: 02:29 Constitutional: This is a well developed, well nourished patient who is awake, alert, pm1 and in no acute distress. Head/Face: Normocephalic, atraumatic. Eyes: Pupils equal round and reactive to light, extra-ocular motions intact. Lids and lashes normal. Conjunctiva and sclera are non-icteric and not injected. Cornea within normal limits. Periorbital areas with no swelling, redness, or edema. ENT: Nares patent. No nasal discharge, no septal abnormalities noted. Tympanic membranes are normal and external auditory canals are clear. Oropharynx with no redness, swelling, or masses, exudates, or evidence of obstruction, uvula midline. Mucous membranes moist. Neck: Trachea midline, no thyromegaly or masses palpated, and no cervical lymphadenopathy. Supple, full range of motion without nuchal rigidity, or vertebral point tenderness. No Meningismus. Chest/axilla: Normal chest wall appearance and motion. Nontender with no deformity. No lesions are appreciated. Cardiovascular: Regular rate and rhythm with a normal S1 and S2. No gallops, murmurs, or rubs. Normal PMI, no JVD. No pulse deficits. Respiratory: Lungs have equal breath sounds bilaterally, clear to auscultation and percussion. No rales, rhonchi or wheezes noted. No increased work of breathing, no retractions or nasal flaring. Abdomen/GI: Soft, non-tender, with normal bowel sounds. No distension or tympany. No guarding or rebound. No evidence of tenderness throughout. 02:29 Skin: Warm, dry with normal turgor. Normal color with no rashes, no lesions, and no evidence of cellulitis. MS/ Extremity: Pulses equal, no cyanosis. Neurovascular intact. Full, normal range of motion. 02:29 Back: normal spinal alignment noted, vertebral tenderness, is not appreciated, muscle spasm, is appreciated in the right subscapular area. 02:29 Neuro: Orientation: is normal, Motor: is normal, moves all fours, Gait: is steady, at a normal pace, without difficulty. Vital Signs: 10/03 20:32 BP 110 / 72; Pulse 100; Resp 20 S; Temp 98.5(O); Pulse Ox 97% on R/A; Weight 80.74 kg jd3 (R); Height 5 ft. 2 in. (157.48 cm) (R); Pain 10/10; 21:40 BP 136 / 79; Pulse 75; Resp 19 S; Pulse Ox 95% on R/A; cc3 22:26 BP 138 / 77; Pulse 75; Resp 19 S; Pulse Ox 96% on R/A; cc3 23:30 BP 126 / 87; Pulse 71; Resp 17 S; Pulse Ox 96% on R/A; cc3 10/04 00:15 BP 109 / 72; Pulse 70; Resp 17 S; Pulse Ox 96% on R/A; cc3 01:15 BP 110 / 71; Pulse 71; Resp 17 S; Pulse Ox 96% on R/A; cc3 02:30 BP 113 / 81; Pulse 63; Resp 17 S; Pulse Ox 97% on R/A; cc3 03:30 BP 120 / 85; Pulse 60; Resp 17 S; Pulse Ox 98% on R/A; Pain 0/10; cc3 10/03 20:32 Body Mass Index 32.56 (80.74 kg, 157.48 cm) jd3 MDM: 10/03 21:30 Patient medically screened. [facility] 10/04 00:05 Data reviewed: vital signs. Data interpreted: Pulse oximetry: on room air is 97 %. pm1 Interpretation: normal. Counseling: I had a detailed discussion with the patient and/or guardian regarding: the historical points, exam findings, and any diagnostic results supporting the discharge/admit diagnosis, lab results, radiology results, the need for outpatient follow up, to return to the emergency department if symptoms worsen or persist or if there are any questions or concerns that arise at home. 02:21 Counseling: I had a detailed discussion with the patient and/or guardian regarding: the pm1 historical points, exam findings, and any diagnostic results supporting the discharge/admit diagnosis, lab results, radiology results, the need for outpatient follow up, a family practitioner, to return to the emergency department if symptoms worsen or persist or if there are any questions or concerns that arise at home. 10/03 22:36 Order name: Urine Dipstick--Ancillary (enter results); Complete Time: 00:08 2 10/03 22:48 Order name: Flu; Complete Time: 00:04 pm1 10/04 01:01 Order name: Basic Metabolic Panel pm1 10/04 01:01 Order name: CBC with Diff; Complete Time: 02:09 pm1 10/04 01:01 Order name: Creatinine for Radiology; Complete Time: 02:09 pm1 10/04 01:01 Order name: Hepatic Function; Complete Time: 02:09 pm1 10/03 22:48 Order name: Chest Pa And Lat (2 Views) XRAY pm1 10/04 01:01 Order name: Lipase; Complete Time: 02:09 pm1 10/04 01:01 Order name: IV Saline Lock; Complete Time: 01:23 pm1 10/04 01:01 Order name: Labs collected and sent; Complete Time: 01:24 pm1 10/04 01:01 Order name: CT Stone Protocol pm1 10/04 01:02 Order name: Basic Metabolic Panel; Complete Time: 02:09 EDMS Administered Medications: 10/03 23:05 Drug: Tussionex Pennkinetic ER 5 ml Route: PO; cc3 23:30 Follow up: Response: No adverse reaction [facility] 10/04 02:30 Drug: NS 0.9% 1000 ml Route: IV; Rate: 1000 ml; Site: right antecubital; cc3 03:30 Follow up: Response: No adverse reaction; IV Status: Completed infusion; IV Intake: cc3 1000ml Disposition: 09:07 Co-signature as Attending Physician, Mickey Davila MD I agree with the assessment and jordyn plan of care. Disposition: 10/04/18 02:23 Discharged to Home. Impression: Cough, Dehydration, Headache. - Condition is Stable. - Discharge Instructions: Dehydration, Adult, General Headache Without Cause, Cough, Adult, Rehydration, Adult. - Prescriptions for Zithromax Z- Alvarez 250 mg Oral Tablet - take 1 tablet by ORAL route as directed for 5 days Day 1 - take two (2) tablets one time. Day 2, 3, 4 , 5 take one (1) tablet once daily.; 6 tablet. Guaifenesin AC 10- 100 mg/5 mL Oral Liquid - take 10 milliliter by ORAL route every 4 hours As needed; 240 milliliter. - Medication Reconciliation Form, Thank You Letter, Antibiotic Education, Prescription Opioid Use, Work release form form. - Follow up: Emergency Department; When: As needed; Reason: Worsening of condition. Follow up: Private Physician; When: 2 - 3 days; Reason: Recheck today's complaints, Continuance of care, Re-evaluation by your physician. - Problem is new. - Symptoms have improved. Signatures: Dispatcher [employer] EDMS Mickey Davila MD MD cha Marinas, Patrick, PHYSICAL THERAPY INSTRUCTOR PHYSICAL THERAPY INSTRUCTOR pm1 Mark Anthony Cam RN RN jd3 Tiffany Magana cc3 Corrections: (The following items were deleted from the chart) 00:58 00:08 10/04/2018 00:08 Discharged to Home. Impression: Cough. Condition is Stable. pm1 Forms are Medication Reconciliation Form, Thank You Letter, Antibiotic Education, Prescription Opioid Use. Follow up: Emergency Department; When: As needed; Reason: Worsening of condition. Follow up: Private Physician; When: 2 - 3 days; Reason: Recheck today's complaints, Continuance of care, Re-evaluation by your physician. Problem is new. Symptoms have improved. pm1 01:01 00:58 10/04/2018 00:08 Discharged to Home. Impression: Cough; Headache. Condition is pm1 Stable. Discharge Instructions: Cough, Adult. Prescriptions for Zithromax Z-Alvarez 250 mg Oral Tablet - take 1 tablet by ORAL route as directed for 5 days Day 1 - take two (2) tablets one time. Day 2, 3, 4 , 5 take one (1) tablet once daily.; 6 tablet, Guaifenesin AC 10-100 mg/5 mL Oral Liquid - take 10 milliliter by ORAL route every 4 hours As needed; 240 milliliter. and Forms are Medication Reconciliation Form, Thank You Letter, Antibiotic Education, Prescription Opioid Use. Follow up: Emergency Department; When: As needed; Reason: Worsening of condition. Follow up: Private Physician; When: 2 - 3 days; Reason: Recheck today's complaints, Continuance of care, Re-evaluation by your physician. Problem is new. Symptoms have improved. pm1 03:50 02:23 10/04/2018 02:23 Discharged to Home. Impression: CoughDehydration; Headache. cc3 Condition is Stable. Prescriptions for Zithromax Z-Alvarez 250 mg Oral Tablet - take 1 tablet by ORAL route as directed for 5 days Day 1 - take two (2) tablets one time. Day 2, 3, 4 , 5 take one (1) tablet once daily.; 6 tablet, Guaifenesin AC 10-100 mg/5 mL Oral Liquid - take 10 milliliter by ORAL route every 4 hours As needed; 240 milliliter. and Forms are Medication Reconciliation Form, Thank You Letter, Antibiotic Education, Prescription Opioid Use. Follow up: Emergency Department; When: As needed; Reason: Worsening of condition. Follow up: Private Physician; When: 2 - 3 days; Reason: Recheck today's complaints, Continuance of care, Re-evaluation by your physician. Problem is new. Symptoms have improved. pm1
[2018-10-04 01:37] LABS: Absolute Lymphocytes (CBC) 1.4 K/uL (0.7-4.9); Basophils % 0.9 % (0-1.3); Eosinophils % 4.9 % (0-4.4); Hematocrit 48.5 % (39.6-49.0); Lymphocytes % 18.1 % (15.3-44.8); MPV 9.3 fL (7.6-11.3); Monocytes % 10.6 % (3.3-12.3); RBC Red Blood Cell Count 5.47 M/uL (4.33-5.43)
[2018-10-04 01:59] LABS: Albumin 4.7 g/dL (3.4-5.0); Bilirubin Direct 0.1 mg/dL (0-0.2); Bilirubin Total 0.4 mg/dL (0.2-1.0); Potassium 3.5 mmol/L (3.5-5.1); Protein, Total 8.3 g/dL (6.4-8.2)
[2018-10-04] MEDS ORDERED: NA CHLORIDE 0.9% 1,000 ML ONE (02:43)
--- NOTE | 2018-10-04 08:16 | RAD REPORT ---
EXAM DESCRIPTION: RAD - Chest Pa And Lat (2 Views) - 10/03/2018 11:06 pm CLINICAL HISTORY: COUGH Chest pain. COMPARISON: Chest Single View dated 01/10/2018; Chest Pa And Lat (2 Views) dated 08/25/2017; Chest Pa And Lat (2 Views) dated 02/08/2017; Chest Pa And Lat (2 Views) dated 11/07/2016 FINDINGS: The lungs are emphysematous but clear. The heart is normal in size. No displaced fractures . IMPRESSION: Prominent COPD.
--- NOTE | 2018-10-04 11:15 | RAD REPORT ---
EXAM DESCRIPTION: Abdomen and Pelvis Without Intravenous Contrast CLINICAL HISTORY: The patient is 53 years old and is Male; FLANK PAIN TECHNIQUE: Axial computed tomography images of the abdomen and pelvis without intravenous contrast. Sagittal and coronal reformatted images were created and reviewed. This CT exam was performed usi ng one or more of the following dose reduction techniques: automated exposure control, adjustment o f the mA and/or kV according to patient size, and/or use of iterative reconstruction technique. COMPARISON: CT of the chest, abdomen, and pelvis January 10, 2018. FINDINGS: LUNG BASES: Unremarkable. No mass. No consolidation. ABDOMEN: LIVER: Homogeneous without focal mass. GALLBLADDER AND BILE DUCTS: Surgical clips are present in the right upper quadrant, consistent w ith previous cholecystectomy. PANCREAS: Unremarkable. No ductal dilation. SPLEEN: Unremarkable. ADRENALS: Unremarkable. No mass. KIDNEYS AND URETERS: No obstructing stones. No hydronephrosis. STOMACH AND BOWEL: The stomach is distended with food contents. The small bowel is normal in jossy iber. A moderate amount of stool is present throughout the colon. There is no mucosal thickening or e vidence of bowel obstruction. PELVIS: APPENDIX: The appendix is normal in caliber without surrounding inflammation. BLADDER: The bladder is moderately distended. No stones. REPRODUCTIVE: Unremarkable as visualized. ABDOMEN and PELVIS: INTRAPERITONEAL SPACE: Unremarkable. No free air. No significant fluid collection. BONES/JOINTS: No acute fracture. SOFT TISSUES: There are small bilateral fat containing inguinal hernias. A fat-containing umbi lical hernia is present. VASCULATURE: Unremarkable. No abdominal aortic aneurysm. LYMPH NODES: Unremarkable. No enlarged lymph nodes. IMPRESSION: No acute findings on this noncontrasted CT of the abdomen and pelvis to explain the slick ent's symptoms. Electronically signed by: Niurka Harrison MD 10/04/2018 1:46 AM CDT Due to temporary technical issues with the PACS/Fluency reporting system, reports are being signed by the in house radiologist as a courtesy to ensure prompt reporting. The interpreting radiologist is f ully responsible for the content of the report.
[2018-10-05 18:27] VITALS: BP 120/85; TEMP 98.5; O2SAT 98
== END 2018-10-04 03:50 | disposition home or self-care (01) ==
LOC: ER 19:52
DX: E86.0 Dehydration (principal); R05 Cough; I10 Essential (primary) hypertension; E78.00 Pure hypercholesterolemia, unspecified; K21.9 Gastro-esophageal reflux disease without esophagitis; Z72.0 Tobacco use; Z88.8 Allergy status to other drugs, medicaments and biological substances
CPT/HCPCS: 36415; 71046; 74176; 76377; 80048; 80076; 81003; 83690; 85025; 87804; 96360; 99284; J7030